=== PATIENT | male | born 1970 | race African-American/Black ===

== ENCOUNTER 2017-08-31 23:42 | Inpatient (IN) | payer BC ==
[2017-09-01 00:50] LABS: ADD MAN DIFF? NO
[2017-09-01 00:51] LABS: BASO % 0 % (0-3); EOS # 0.2 x10^3/uL (0.0-0.7); EOS % 2 % (0-3); HEMATOCRIT 30.4 % (39.0-53.0); HEMOGLOBIN 10.4 g/dL (13.0-17.5); LYMPH # 2.6 x10^3/uL (1.0-4.8); LYMPH % 35 % (24-48); MEAN CORPUSCULAR HEMOGLOBIN 30 pg (25-35); MEAN CORPUSCULAR HGB CONC 34 g/dL (31-37); MEAN CORPUSCULAR VOLUME 87 fL (79-100); MONO # 0.6 x10^3/uL (0.0-1.1); MONO % 8 % (0-9); NEUT # 4.1 x10^3uL (1.8-7.7); NEUT % 55 % (31-73); PLATELET COUNT 268 x10^3/uL (140-400); RED BLOOD COUNT 3.51 x10^6/uL (4.30-5.70); RED CELL DISTRIBUTION WIDTH 14.8 % (11.5-14.5); WHITE BLOOD COUNT 7.6 x10^3/uL (4.0-11.0)
[2017-09-01 01:00] LABS: INR 1.1 (0.8-1.1); PROTHROMBIN TIME PATIENT 13.7 SEC (11.7-14.0)
[2017-09-01] MEDS: IV NORMAL SALINE 1000ML BAG 1,000 ML IV ×2 (01:00)
[2017-09-01 01:05] LABS: ANION GAP 17 (6-14); BLOOD UREA NITROGEN 81 mg/dL (8-26); BUN/CREATININE RATIO 10 (6-20); CALCIUM 8.2 mg/dL (8.5-10.1); CARBON DIOXIDE 24 mmol/L (21-32); CHLORIDE 105 mmol/L (98-107); CREATININE 8.4 mg/dL (0.7-1.3); GFR 8.3; GLUCOSE 145 mg/dL (70-99); POTASSIUM 3.9 mmol/L (3.5-5.1); SODIUM 146 mmol/L (136-145)
[2017-09-01 01:05] LABS: LIPASE 139 U/L (73-393)
[2017-09-01 01:13] LABS: ALBUMIN 3.2 g/dL (3.4-5.0); ALK PHOS 85 U/L (46-116); ALT (SGPT) 43 U/L (16-63); AST (SGOT) 45 U/L (15-37); TOTAL BILIRUBIN 0.3 mg/dL (0.2-1.0); TOTAL PROTEIN 6.5 g/dL (6.4-8.2)
[2017-09-01 01:14] LABS: LACTIC ACID 1.9 mmol/L (0.4-2.0)
[2017-09-01 01:15] LABS: TROPONINI 0.077 ng/mL (0.000-0.055)
[2017-09-01 01:17] LABS: NT-PRO BNP 20476 pg/mL (0-124)
[2017-09-01 01:25] LABS: MAGNESIUM 2.3 mg/dL (1.8-2.4)
[2017-09-01] MEDS: IPRATRPIUM/ALBUTEROL 0.5/2.5MG 3 ML NEBU. NEB (01:27)
[2017-09-01] MEDS: DOXYCYCLINE HYCLATE 100 MG in IV NORMAL SALINE 100ML 100 ML IV (02:00)
[2017-09-01 02:04] LABS: BASE EXCESS ABG -7 mmol/L (-3-3); HCO3 ABG 19 mmol/L (21-28); PCO2 ABG 38 mmHg (35-46); PH ABG 7.31 (7.35-7.45); PO2 ABG 78 mmHg (75-108); SAT O2 ABG 94 % (92-99)
[2017-09-01 02:14] LABS: FIO2 ABG 21
[2017-09-01 02:45] LABS: BILIRUBIN,URINE NEGATIVE (NEG); CLARITY,URINE CLOUDY; COLOR,URINE YELLOW; GLUCOSE,URINE NEGATIVE (NEG); NITRITE,URINE NEGATIVE (NEG); PROTEIN,URINE >=300 mg/dL (NEG-TRACE); UROBILINOGEN,URINE 0.2 mg/dL (0.2 mg/dL)
[2017-09-01 02:48] LABS: AMORPHOUS SEDIMENT,UR PRESENT /HPF; BACTERIA,URINE 0 /HPF (0-FEW); RBC,URINE 0 /HPF (0-2); SQUAMOUS EPITHELIAL CELL,UR FEW /LPF
[2017-09-01] MEDS: IOHEXOL 300 MG/ML 100ML VIAL. IV ×2 (02:56→04:15)
[2017-09-01] MEDS ORDERED: CONTRAST GIVEN. MC (03:00)
[2017-09-01 04:16] LABS: PROCALCITONIN 0.27 ng/mL (0.00-0.10)
[2017-09-01] MEDS ORDERED: SURGICEL NU-KNIT 3X4. (04:28)
[2017-09-01] MEDS ORDERED: GELATIN SPONGE SIZE 100. (04:28)
[2017-09-01] MEDS ORDERED: PAPAVERINE 60 MG/2 ML VIAL FOR OR ONLY. (04:28)
[2017-09-01] MEDS ORDERED: SURGICEL HEMOSTAT 4X8 EACH. (04:28)
[2017-09-01] MEDS ORDERED: THROMBIN TOPICAL 20,000 UNIT SPRAY.SYRN KIT TP (04:29)
[2017-09-01] MEDS ORDERED: ROCURONIUM 100 MG/10 ML VIAL. (05:35)
[2017-09-01] MEDS ORDERED: SUCCINYLCHOLINE 200 MG/10 ML VIAL. (05:35)
[2017-09-01] MEDS ORDERED: LIDOCAINE 2% PF Vial for OR 5 ML VIAL. ×2 (05:38→14:13)
[2017-09-01] MEDS ORDERED: ETOMIDATE 20 MG/10 ML VIAL. IV (05:38)
[2017-09-01] MEDS ORDERED: HEPARIN for IV BOLUS 10,000 UNIT/10 ML VIAL. (05:38)
[2017-09-01] MEDS ORDERED: PHENYLEPHRINE 10 MG/ML VIAL. ×3 (05:39→14:55)
[2017-09-01] MEDS ORDERED: HEPARIN 30,000 UNIT/30 ML VIAL. ×4 (05:39→14:55)
[2017-09-01] MEDS ORDERED: SUFentanil 100 MCG/2 ML AMPUL. ×2 (06:14→08:20)
[2017-09-01] MEDS ORDERED: NITROGLYCERIN PREMIX 250 ML IV (06:29)
[2017-09-01] MEDS ORDERED: MIDAZOLAM HCL/PF 5 MG/5 ML VIAL. ×2 (06:40→09:24)
[2017-09-01] MEDS: MANNITOL 20% PREMIX 500 ML IV (07:00)
[2017-09-01] MEDS ORDERED: SODIUM BICARB ADULT 8.4% 50 MEQ/50 ML DISP.SYRIN. ×7 (07:22→14:13)
[2017-09-01] MEDS: INSULIN REGULAR VIAL 150 UNIT in 0.9 % SODIUM CHLORIDE 150ML 150 ML IV (07:30)
[2017-09-01] MEDS: VANCOMYCIN 10GM VIAL for OR. (07:33)
[2017-09-01] MEDS ORDERED: DEXAMETHASONE SOD PHOS 20 MG/5 ML VIAL. (07:44)
[2017-09-01] MEDS ORDERED: DIALYSIS IV ×3 (08:30→09:15)
[2017-09-01] MEDS ORDERED: CALCIUM CHLORIDE IV ×3 (08:30→09:15)
[2017-09-01] MEDS: POTASSIUM CHLORIDE 70 MEQ, SODIUM BICARBONATE VIAL 12.5 MEQ, LIDOCAINE 2% 24 ML in IV E... IRR (09:07)
[2017-09-01] MEDS: POTASSIUM CHLORIDE 15 MEQ, SODIUM BICARBONATE VIAL 12.5 MEQ in IV ELECTROLYTE-S (PH 7.4... IRR (09:07)
[2017-09-01] MEDS ORDERED: PROPOFOL 20 ML IV ×2 (09:11→11:03)
[2017-09-01] MEDS ORDERED: ceFAZolin 1GM IVPB FOR OMNI 100 ML IV (09:40)
[2017-09-01 11:21] LABS: ANION GAP 16 (6-14); BLOOD UREA NITROGEN 72 mg/dL (8-26); CALCIUM 6.9 mg/dL (8.5-10.1); CARBON DIOXIDE 20 mmol/L (21-32); CHLORIDE 106 mmol/L (98-107); CREATININE 6.9 mg/dL (0.7-1.3); GFR 10.4; GLUCOSE 138 mg/dL (70-99); SODIUM 142 mmol/L (136-145)
[2017-09-01] MEDS ORDERED: ALBUMIN HUMAN 25% 200 ML IV ×2 (11:24→14:13)
[2017-09-01 11:26] LABS: POTASSIUM 5.9 mmol/L (3.5-5.1)
[2017-09-01] MEDS ORDERED: ROCURONIUM 50 MG/5 ML VIAL. ×2 (12:02→13:19)
[2017-09-01] MEDS ORDERED: MIDAZOLAM HCL/PF 2 MG/2 ML VIAL. (12:03)
[2017-09-01 12:40] LABS: IMMEDIATE SPIN CROSSMATCH 1
[2017-09-01] MEDS ORDERED: DEXTROSE 50% 25 GM / 50ML DISP.SYRIN. IV ×2 (12:44→14:00)
[2017-09-01] MEDS ORDERED: PROTAMINE 250 MG/25 ML VIAL IV (13:35)
[2017-09-01] MEDS ORDERED: ISOFLURANE > 120 MINUTES. IH (13:35)
[2017-09-01 13:51] LABS: IMMEDIATE SPIN CROSSMATCH 1
[2017-09-01 13:56] LABS: IMMEDIATE SPIN CROSSMATCH 1 6
[2017-09-01] MEDS ORDERED: INSULIN REGULAR VIAL 150 UNIT in 0.9 % SODIUM CHLORIDE 150ML 150 ML IV (14:00)
[2017-09-01] MEDS ORDERED: BISACODYL 10 MG SUPP.RECT. PR (14:00)
[2017-09-01] MEDS ORDERED: ACETAMINOPHEN 325 MG TABLET. PO (14:00)
[2017-09-01] MEDS ORDERED: ACETAMINOPHEN 650 MG SUPP.RECT. PR (14:00)
[2017-09-01] MEDS ORDERED: 0.9 % SODIUM CHLORIDE 10 ML DISP.SYRIN. IV (14:00)
[2017-09-01] MEDS ORDERED: ASPIRIN 300 MG SUPP.RECT PR (14:00)
[2017-09-01] MEDS ORDERED: MEPERIDINE PF 25 MG/ML VIAL. IV (14:00)
[2017-09-01] MEDS ORDERED: MAGNESIUM SULFATE 1GM 100 ML IV (14:00)
[2017-09-01] MEDS ORDERED: MAGNESIUM SULFATE 5 GM/10 ML VIAL. (14:13)
[2017-09-01] MEDS ORDERED: CALCIUM CHLORIDE 1,000 MG/10 ML DISP.SYRIN IV (14:13)
[2017-09-01 15:01] LABS: ADD MAN DIFF? NO
[2017-09-01 15:04] LABS: BASO % 0 % (0-3); EOS % 0 % (0-3); HEMATOCRIT 23.3 % (39.0-53.0); HEMOGLOBIN 8.1 g/dL (13.0-17.5); LYMPH # 1.3 x10^3/uL (1.0-4.8); LYMPH % 14 % (24-48); MEAN CORPUSCULAR HEMOGLOBIN 31 pg (25-35); MEAN CORPUSCULAR HGB CONC 35 g/dL (31-37); MEAN CORPUSCULAR VOLUME 88 fL (79-100); MONO # 0.9 x10^3/uL (0.0-1.1); MONO % 10 % (0-9); NEUT # 7.2 x10^3uL (1.8-7.7); NEUT % 76 % (31-73); PLATELET COUNT 121 x10^3/uL (140-400); RED BLOOD COUNT 2.66 x10^6/uL (4.30-5.70); RED CELL DISTRIBUTION WIDTH 15.4 % (11.5-14.5); WHITE BLOOD COUNT 9.5 x10^3/uL (4.0-11.0)
[2017-09-01 15:11] LABS: FIBRINOGEN 228 mg/dL (200-440); INR 1.8 (0.8-1.1); PARTIAL THROMBOPLASTIN TIME 43 SEC (24-38); PROTHROMBIN TIME PATIENT 20.5 SEC (11.7-14.0)
[2017-09-01] MEDS: AMIODARONE 150 MG in IV DEXTROSE 5% 100ML 100 ML IV (15:30)
[2017-09-01 15:45] LABS: ART BE ISTAT -10 mmol/L (0-3); ART BE ISTAT -2 mmol/L (0-3); ART BE ISTAT -3 mmol/L (0-3); ART BE ISTAT -4 mmol/L (0-3); ART BE ISTAT -6 mmol/L (0-3); ART BE ISTAT 1 mmol/L (0-3); ART BE ISTAT 3 mmol/L (0-3); ART BE ISTAT 7 mmol/L (0-3); ART GLUC ISTAT 120 mg/dL (70-99); ART GLUC ISTAT 128 mg/dL (70-99); ART GLUC ISTAT 132 mg/dL (70-99); ART GLUC ISTAT 135 mg/dL (70-99); ART GLUC ISTAT 136 mg/dL (70-99); ART GLUC ISTAT 140 mg/dL (70-99); ART GLUC ISTAT 142 mg/dL (70-99); ART GLUC ISTAT 143 mg/dL (70-99); ART GLUC ISTAT 152 mg/dL (70-99); ART GLUC ISTAT 178 mg/dL (70-99); ART HCO3 ISTAT 18 mmol/L (21-28); ART HCO3 ISTAT 21 mmol/L (21-28); ART HCO3 ISTAT 23 mmol/L (21-28); ART HCO3 ISTAT 24 mmol/L (21-28); ART HCO3 ISTAT 25 mmol/L (21-28); ART HCO3 ISTAT 26 mmol/L (21-28); ART HCT ISTAT 20 % (37-52); ART HCT ISTAT 21 % (37-52); ART HCT ISTAT 22 % (37-52); ART HCT ISTAT 24 % (37-52); ART HCT ISTAT 25 % (37-52); ART HCT ISTAT 26 % (37-52); ART HCT ISTAT 27 % (37-52); ART HCT ISTAT 30 % (37-52); ART HGB ISTAT 10.2 g/dL (14-18); ART HGB ISTAT 6.8 g/dL (14-18); ART HGB ISTAT 7.1 g/dL (14-18); ART HGB ISTAT 7.5 g/dL (14-18); ART HGB ISTAT 8.2 g/dL (14-18); ART HGB ISTAT 8.5 g/dL (14-18); ART HGB ISTAT 8.8 g/dL (14-18); ART HGB ISTAT 9.2 g/dL (14-18); ART ION CA ISTAT 0.83 mmol/L (1.13-1.32); ART ION CA ISTAT 0.88 mmol/L (1.13-1.32); ART ION CA ISTAT 0.93 mmol/L (1.13-1.32); ART ION CA ISTAT 0.94 mmol/L (1.13-1.32); ART ION CA ISTAT 0.96 mmol/L (1.13-1.32); ART ION CA ISTAT 1.07 mmol/L (1.13-1.32); ART ION CA ISTAT 1.14 mmol/L (1.13-1.32); ART K ISTAT 4.1 mmol/L (3.5-5.0); ART K ISTAT 4.2 mmol/L (3.5-5.0); ART K ISTAT 5.2 mmol/L (3.5-5.0); ART K ISTAT 5.5 mmol/L (3.5-5.0); ART K ISTAT 5.8 mmol/L (3.5-5.0); ART K ISTAT 5.9 mmol/L (3.5-5.0); ART K ISTAT 6.1 mmol/L (3.5-5.0); ART K ISTAT 6.2 mmol/L (3.5-5.0); ART NA ISTAT 138 mmol/L (135-145); ART NA ISTAT 139 mmol/L (135-145); ART NA ISTAT 140 mmol/L (135-145); ART NA ISTAT 141 mmol/L (135-145); ART NA ISTAT 144 mmol/L (135-145); ART PCO2 ISTAT 15 mmHg (35-45); ART PCO2 ISTAT 36 mmHg (35-45); ART PCO2 ISTAT 39 mmHg (35-45); ART PCO2 ISTAT 42 mmHg (35-45); ART PCO2 ISTAT 44 mmHg (35-45); ART PCO2 ISTAT 49 mmHg (35-45); ART PCO2 ISTAT 50 mmHg (35-45); ART PCO2 ISTAT 54 mmHg (35-45); ART PH ISTAT 7.18 (7.35-7.45); ART PH ISTAT 7.24 (7.35-7.45); ART PH ISTAT 7.25 (7.35-7.45); ART PH ISTAT 7.31 (7.35-7.45); ART PH ISTAT 7.33 (7.35-7.45); ART PH ISTAT 7.34 (7.35-7.45); ART PH ISTAT 7.37 (7.35-7.45); ART PH ISTAT 7.42 (7.35-7.45); ART PH ISTAT 7.47 (7.35-7.45); ART PH ISTAT 7.83 (7.35-7.45); ART PO2 ISTAT 149 mmHg (75-100); ART PO2 ISTAT 215 mmHg (75-100); ART PO2 ISTAT 234 mmHg (75-100); ART PO2 ISTAT 274 mmHg (75-100); ART PO2 ISTAT 347 mmHg (75-100); ART PO2 ISTAT 380 mmHg (75-100); ART PO2 ISTAT 387 mmHg (75-100); ART PO2 ISTAT 403 mmHg (75-100); ART PO2 ISTAT 468 mmHg (75-100); ART PO2 ISTAT 85 mmHg (75-100); ART SAT O2 SAT 100 % (95-99); ART SAT O2 SAT 96 % (95-99); ART SAT O2 SAT 99 % (95-99); ART TCO2 ISTAT 20 mmol/L (21-32); ART TCO2 ISTAT 23 mmol/L (21-32); ART TCO2 ISTAT 24 mmol/L (21-32); ART TCO2 ISTAT 25 mmol/L (21-32); ART TCO2 ISTAT 26 mmol/L (21-32); ART TCO2 ISTAT 27 mmol/L (21-32); FIO2 ISTAT 100; TOSPEC ART; TOSPEC VEN; VEN BASE EXCESS ISTAT -8 mmol/L (0-3); VEN GLUC ISTAT 134 mg/dL (70-99); VEN HCO3 ISTAT 20 mmol/L (24-28); VEN HCT ISTAT 24 % (37-52); VEN HGB ISTAT 8.2 g/dL (14-18); VEN ION CA ISTAT 0.98 mmol/L (1.13-1.32); VEN K ISTAT 6.5 mmol/L (3.5-5.0); VEN NA ISTAT 138 mmol/L (135-145); VEN O2 ISTAT 63 mmHg (20-40); VEN PCO2 ISTAT 60 mmHg (41-51); VEN PH ISTAT 7.14 (7.32-7.42); VEN SO2 ISTAT 84 %; VEN TCO2 ISTAT 22 mmol/L (21-32)
[2017-09-01 16:23] LABS: BASE EXCESS ABG -4 mmol/L (-3-3); HCO3 ABG 22 mmol/L (21-28); PCO2 ABG 43 mmHg (35-46); PH ABG 7.33 (7.35-7.45); PO2 ABG 62 mmHg (75-108); SAT O2 ABG 89 % (92-99)
[2017-09-01 16:26] LABS: FIO2 ABG 100
[2017-09-01 16:32] LABS: ADD MAN DIFF? NO
[2017-09-01 16:36] LABS: BASO % 0 % (0-3); EOS % 0 % (0-3); HEMATOCRIT 25.8 % (39.0-53.0); HEMOGLOBIN 8.9 g/dL (13.0-17.5); LYMPH # 1.2 x10^3/uL (1.0-4.8); LYMPH % 13 % (24-48); MEAN CORPUSCULAR HEMOGLOBIN 30 pg (25-35); MEAN CORPUSCULAR HGB CONC 35 g/dL (31-37); MEAN CORPUSCULAR VOLUME 88 fL (79-100); MONO # 1.1 x10^3/uL (0.0-1.1); MONO % 13 % (0-9); NEUT # 6.7 x10^3uL (1.8-7.7); NEUT % 74 % (31-73); PLATELET COUNT 128 x10^3/uL (140-400); RED BLOOD COUNT 2.93 x10^6/uL (4.30-5.70); RED CELL DISTRIBUTION WIDTH 15.3 % (11.5-14.5)
[2017-09-01 16:43] LABS: ANION GAP 11 (6-14); BLOOD UREA NITROGEN 67 mg/dL (8-26); CALCIUM 6.5 mg/dL (8.5-10.1); CARBON DIOXIDE 23 mmol/L (21-32); CHLORIDE 110 mmol/L (98-107); CREATININE 6.9 mg/dL (0.7-1.3); GFR 10.4; GLUCOSE 126 mg/dL (70-99); MAGNESIUM 2.4 mg/dL (1.8-2.4); SODIUM 144 mmol/L (136-145)
[2017-09-01 16:45] LABS: FIBRINOGEN 253 mg/dL (200-440); POTASSIUM 4.4 mmol/L (3.5-5.1)
[2017-09-01 16:46] LABS: INR 1.6 (0.8-1.1); PARTIAL THROMBOPLASTIN TIME 38 SEC (24-38); PROTHROMBIN TIME PATIENT 18.7 SEC (11.7-14.0)
[2017-09-01 16:55] LABS: IONIZED CALCIUM 0.94 mmol/L (1.13-1.32)
[2017-09-01] MEDS ORDERED: ceFAZolin SODIUM IV Push 1 GM VIAL. IVP (17:00)
[2017-09-01 17:27] LABS: BASE EXCESS ABG -4 mmol/L (-3-3); BODY TEMP ABG 96.2 DEG; CORRECTED PCO2 ABG 33 mmHg; CORRECTED PH ABG 7.41; CORRECTED PO2 ABG 62 mmHg; HCO3 ABG 21 mmol/L (21-28); PCO2 ABG 35 mmHg (35-46); PH ABG 7.39 (7.35-7.45); PO2 ABG 68 mmHg (75-108); SAT O2 ABG 91 % (92-99)
[2017-09-01 17:30] LABS: FIO2 ABG 100
[2017-09-01 17:59] LABS: ACT+ 561 SEC (90-125)
[2017-09-01 17:59] LABS: ACT+ 129 SEC (90-125)
[2017-09-01 17:59] LABS: ACT+ 542 SEC (90-125)
[2017-09-01 18:00] LABS: ACT+ 645 SEC (90-125)
[2017-09-01 18:00] LABS: ACT+ 514 SEC (90-125)
[2017-09-01 18:00] LABS: ACT+ 624 SEC (90-125)
[2017-09-01 18:00] LABS: ACT+ 684 SEC (90-125)
[2017-09-01 18:00] LABS: ACT+ 546 SEC (90-125)
[2017-09-01 18:00] LABS: ACT+ 677 SEC (90-125)
[2017-09-01 18:00] LABS: ACT+ 639 SEC (90-125)
[2017-09-01 18:00] LABS: ACT+ 746 SEC (90-125)
[2017-09-01 18:01] LABS: ACT+ 117 SEC (90-125)
[2017-09-01] MEDS: ALBUMIN HUMAN 5% 250 ML IV ×2 (18:20→19:51)
[2017-09-01] MEDS: PROPOFOL 100 ML IV ×2 (18:21→20:06)
[2017-09-01] MEDS: AMIODARONE 900 MG in IV DEXTROSE 5% 500 ML IV (18:22)
[2017-09-01] MEDS: CHLORHEXIDINE 0.12% 15 ML MOUTHWASH. MM (20:06)
[2017-09-01] MEDS: ALBUTEROL SULFATE 2.5 MG/3 ML NEBU. NEB (20:11)
[2017-09-01 20:43] LABS: HEMATOCRIT 24.9 % (39.0-53.0); HEMOGLOBIN 8.7 g/dL (13.0-17.5); MEAN CORPUSCULAR HGB CONC 35 g/dL (31-37)
[2017-09-01] MEDS: IV RINGERS,LACTATED 1000ML 1,000 ML IV (20:45)
[2017-09-01] MEDS ORDERED: FAMOTIDINE 20 MG/2 ML VIAL IVP (21:00)
[2017-09-01] MEDS: MORPHINE SULFATE 4 MG/ML DISP.SYRIN. IV ×2 (21:45→23:10)
[2017-09-01 22:52] LABS: BASE EXCESS ABG -4 mmol/L (-3-3); BODY TEMP ABG 99.9 DEG; CORRECTED PCO2 ABG 33 mmHg; CORRECTED PO2 ABG 83 mmHg; HCO3 ABG 20 mmol/L (21-28); PCO2 ABG 32 mmHg (35-46); PH ABG 7.41 (7.35-7.45); PO2 ABG 79 mmHg (75-108); SAT O2 ABG 95 % (92-99)
[2017-09-01 23:33] LABS: FIO2 ABG 40
[2017-09-01] MEDS: SODIUM BICARB ADULT 8.4% 50 MEQ/50 ML DISP.SYRIN. IV (23:54)
[2017-09-02] MEDS: oxyCODONE/APAP 5/325 1 TAB TABLET PO ×5 (00:18→21:21)
[2017-09-02 00:32] LABS: POC GLUCOSE 122 mg/dL (70-99)
[2017-09-02 00:32] LABS: POC GLUCOSE 141 mg/dL (70-99)
[2017-09-02 00:32] LABS: POC GLUCOSE 111 mg/dL (70-99)
[2017-09-02 00:32] LABS: POC GLUCOSE 112 mg/dL (70-99)
[2017-09-02 00:32] LABS: POC GLUCOSE 138 mg/dL (70-99)
[2017-09-02 00:33] LABS: POC GLUCOSE 122 mg/dL (70-99)
[2017-09-02 00:33] LABS: POC GLUCOSE 120 mg/dL (70-99)
[2017-09-02 00:33] LABS: POC GLUCOSE 124 mg/dL (70-99)
[2017-09-02] MEDS: MORPHINE SULFATE 4 MG/ML DISP.SYRIN. IV ×3 (00:36→06:43)
[2017-09-02 01:37] LABS: POC GLUCOSE 127 mg/dL (70-99)
[2017-09-02] MEDS: ceFAZolin SODIUM IV Push 1 GM VIAL. IVP ×2 (02:09→15:57)
[2017-09-02 02:20] LABS: POC GLUCOSE 130 mg/dL (70-99)
[2017-09-02 02:32] LABS: POTASSIUM 4.8 mmol/L (3.5-5.1)
[2017-09-02 03:28] LABS: POC GLUCOSE 126 mg/dL (70-99)
[2017-09-02] MEDS: ALBUTEROL SULFATE 2.5 MG/3 ML NEBU. NEB ×6 (04:00→21:10)
[2017-09-02 04:26] LABS: POC GLUCOSE 127 mg/dL (70-99)
[2017-09-02 05:58] LABS: POC GLUCOSE 121 mg/dL (70-99)
[2017-09-02 06:33] LABS: MAGNESIUM 2.3 mg/dL (1.8-2.4)
[2017-09-02 06:38] LABS: ANION GAP 13 (6-14); BLOOD UREA NITROGEN 72 mg/dL (8-26); CALCIUM 7.1 mg/dL (8.5-10.1); CARBON DIOXIDE 22 mmol/L (21-32); CHLORIDE 108 mmol/L (98-107); CHOLESTEROL 92 mg/dL (0-200); CHOLESTEROL/HDL RATIO 3.3; GFR 8.8; GLUCOSE 132 mg/dL (70-99); HDLC 28 mg/dL (40-60); LDLC 53 mg/dL (0-100); NON-HDL CHOLESTEROL 64 mg/dL (0-129); POTASSIUM 4.8 mmol/L (3.5-5.1); SODIUM 143 mmol/L (136-145); TRIGLYCERIDES 55 mg/dL (0-150); VLDLC 11 mg/dL (0-40)
[2017-09-02 07:18] LABS: HEMATOCRIT 26.9 % (39.0-53.0); MEAN CORPUSCULAR HEMOGLOBIN 29 pg (25-35); MEAN CORPUSCULAR HGB CONC 33 g/dL (31-37); MEAN CORPUSCULAR VOLUME 88 fL (79-100); PLATELET COUNT 125 x10^3/uL (140-400); RED BLOOD COUNT 3.05 x10^6/uL (4.30-5.70); RED CELL DISTRIBUTION WIDTH 15.7 % (11.5-14.5); WHITE BLOOD COUNT 11.8 x10^3/uL (4.0-11.0)
[2017-09-02] MEDS: TRANEXAMIC ACID 1,000 MG in IV NORMAL SALINE 50ML 50 ML INJ ×2 (07:30→08:00)
[2017-09-02] MEDS: CHLORHEXIDINE 0.12% 15 ML MOUTHWASH. MM (09:00)
[2017-09-02] MEDS ORDERED: LIDOCAINE WITH 8.4% SOD BICARB 3 ML DISP.SYRIN. (10:04)
[2017-09-02] MEDS ORDERED: HEPARIN for IV BOLUS 10,000 UNIT/10 ML VIAL. (10:04)
[2017-09-02] MEDS: PANTOPRAZOLE IV PUSH 40 MG VIAL. IVP (10:12)
[2017-09-02] MEDS: CARVEDILOL 6.25 MG TABLET. PO ×2 (10:12→16:04)
[2017-09-02] MEDS: ASPIRIN ENTERIC COATED 325 MG TABLET.DR. PO (10:12)
[2017-09-02 10:16] LABS: POC GLUCOSE 126 mg/dL (70-99)
[2017-09-02] MEDS: LIDOCAINE WITH 8.4% SOD BICARB 3 ML DISP.SYRIN. INJ (10:55)
[2017-09-02] MEDS ORDERED: IV NORMAL SALINE 1000ML BAG 1,000 ML IV ×2 (12:58)
[2017-09-02] MEDS ORDERED: diphenhydrAMINE 50 MG/ML VIAL IV ×2 (13:00)
[2017-09-02] MEDS ORDERED: DIALYSIS PATIENT. MC ×3 (13:00)
[2017-09-02] MEDS ORDERED: 0.9 % SODIUM CHLORIDE 10 ML DISP.SYRIN. IV ×2 (13:00)
[2017-09-02] MEDS ORDERED: ALBUMIN HUMAN 25% 200 ML IV (13:00)
[2017-09-02] MEDS ORDERED: DEXTROSE 50% 25 GM / 50ML DISP.SYRIN. IV (15:30)
[2017-09-02] MEDS: PROCHLORPERAZINE 10 MG/2 ML VIAL. IV (15:57)
[2017-09-02] MEDS: ONDANSETRON PF 4 MG/2 ML VIAL. IV (15:57)
[2017-09-02] MEDS: NICOTINE 21MG PATCH. TD (16:04)
[2017-09-02] MEDS: AMIODARONE HCL 200 MG TABLET. PO ×2 (16:04→21:19)
[2017-09-02] MEDS: POLYETHYLENE GLYCOL 3350 17 GM PACKET. PO (16:05)
[2017-09-02] MEDS: INSULIN LISPRO 300 UNITS/3 ML INSULN.PEN. SQ (17:00)
[2017-09-02 17:51] LABS: POC GLUCOSE 97 mg/dL (70-99)
[2017-09-02 19:17] LABS: MRSA BY PCR Negative (Negative)
[2017-09-02] MEDS: ATORVASTATIN CALCIUM 40 MG TABLET. PO (21:10)
[2017-09-02] MEDS: SENNOSIDES/DOCUSATE 8.6/50MG TABLET. PO (21:18)
[2017-09-02 21:27] LABS: POC GLUCOSE 102 mg/dL (70-99)
[2017-09-02] MEDS: IV RINGERS,LACTATED 1000ML 1,000 ML IV (23:57)
[2017-09-03] MEDS: ALBUTEROL SULFATE 2.5 MG/3 ML NEBU. NEB ×7 (00:46→23:42)
[2017-09-03] MEDS: ceFAZolin SODIUM IV Push 1 GM VIAL. IVP ×2 (02:30→14:00)
[2017-09-03] MEDS: oxyCODONE/APAP 5/325 1 TAB TABLET PO ×3 (04:18→21:07)
[2017-09-03 06:27] LABS: ANION GAP 7 (6-14); BLOOD UREA NITROGEN 59 mg/dL (8-26); CALCIUM 8.1 mg/dL (8.5-10.1); CARBON DIOXIDE 28 mmol/L (21-32); CHLORIDE 101 mmol/L (98-107); CREATININE 7.5 mg/dL (0.7-1.3); GFR 9.4; GLUCOSE 98 mg/dL (70-99); POTASSIUM 5.4 mmol/L (3.5-5.1); SODIUM 136 mmol/L (136-145)
[2017-09-03] MEDS: INSULIN LISPRO 300 UNITS/3 ML INSULN.PEN. SQ ×3 (08:00→17:00)
[2017-09-03] MEDS: CARVEDILOL 6.25 MG TABLET. PO ×2 (08:00→17:17)
[2017-09-03] MEDS: POLYETHYLENE GLYCOL 3350 17 GM PACKET. PO ×2 (08:00→17:00)
[2017-09-03 08:19] LABS: POC GLUCOSE 87 mg/dL (70-99)
[2017-09-03] MEDS: AMIODARONE HCL 200 MG TABLET. PO ×2 (09:00→21:09)
[2017-09-03] MEDS: PANTOPRAZOLE 40 MG TABLET.DR. PO (09:01)
[2017-09-03] MEDS: ASPIRIN ENTERIC COATED 325 MG TABLET.DR. PO (09:01)
[2017-09-03] MEDS: ONDANSETRON PF 4 MG/2 ML VIAL. IV (09:01)
[2017-09-03] MEDS: NICOTINE 21MG PATCH. TD (09:05)
[2017-09-03] MEDS ORDERED: DIALYSIS PATIENT. MC (09:15)
[2017-09-03] MEDS ORDERED: diphenhydrAMINE 50 MG/ML VIAL IV ×2 (09:15)
[2017-09-03] MEDS ORDERED: ALBUMIN HUMAN 25% 200 ML IV (09:15)
[2017-09-03] MEDS ORDERED: IV NORMAL SALINE 1000ML BAG 1,000 ML IV ×2 (09:15)
[2017-09-03 13:36] LABS: POC GLUCOSE 84 mg/dL (70-99)
[2017-09-03] MEDS: SENNOSIDES/DOCUSATE 8.6/50MG TABLET. PO ×2 (17:12→21:00)
[2017-09-03 17:27] LABS: POC GLUCOSE 82 mg/dL (70-99)
[2017-09-03] MEDS: ATORVASTATIN CALCIUM 40 MG TABLET. PO (21:09)
[2017-09-03 21:12] LABS: HEMOGLOBIN A1C 5.2 % (4.8-5.6)
[2017-09-03 21:25] LABS: POC GLUCOSE 71 mg/dL (70-99)
[2017-09-04 02:09] LABS: HEP B SURFACE ABDY Non Reactive (.); HEP B SURFACE AG Negative (Negative)
[2017-09-04] MEDS: ceFAZolin SODIUM IV Push 1 GM VIAL. IVP (02:15)
[2017-09-04] MEDS: ALBUTEROL SULFATE 2.5 MG/3 ML NEBU. NEB ×7 (04:00→23:54)
[2017-09-04] MEDS: oxyCODONE/APAP 5/325 1 TAB TABLET PO ×4 (04:53→23:23)
[2017-09-04] MEDS: ONDANSETRON PF 4 MG/2 ML VIAL. IV (06:31)
[2017-09-04] MEDS: INSULIN LISPRO 300 UNITS/3 ML INSULN.PEN. SQ (08:00)
[2017-09-04] MEDS: CARVEDILOL 6.25 MG TABLET. PO ×2 (08:00→16:46)
[2017-09-04 08:29] LABS: HEMATOCRIT 24.7 % (39.0-53.0); HEMOGLOBIN 8.4 g/dL (13.0-17.5); MEAN CORPUSCULAR HEMOGLOBIN 30 pg (25-35); MEAN CORPUSCULAR HGB CONC 34 g/dL (31-37); MEAN CORPUSCULAR VOLUME 89 fL (79-100); PLATELET COUNT 121 x10^3/uL (140-400); RED BLOOD COUNT 2.78 x10^6/uL (4.30-5.70); RED CELL DISTRIBUTION WIDTH 15.3 % (11.5-14.5); WHITE BLOOD COUNT 8.6 x10^3/uL (4.0-11.0)
[2017-09-04 08:59] LABS: ANION GAP 10 (6-14); BLOOD UREA NITROGEN 52 mg/dL (8-26); CALCIUM 8.4 mg/dL (8.5-10.1); CARBON DIOXIDE 27 mmol/L (21-32); CHLORIDE 99 mmol/L (98-107); CREATININE 6.9 mg/dL (0.7-1.3); GFR 10.4; GLUCOSE 110 mg/dL (70-99); POTASSIUM 4.5 mmol/L (3.5-5.1); SODIUM 136 mmol/L (136-145)
[2017-09-04] MEDS: SENNOSIDES/DOCUSATE 8.6/50MG TABLET. PO ×2 (09:31→23:22)
[2017-09-04] MEDS: POLYETHYLENE GLYCOL 3350 17 GM PACKET. PO ×2 (09:31→16:41)
[2017-09-04] MEDS: ASPIRIN ENTERIC COATED 325 MG TABLET.DR. PO (09:31)
[2017-09-04] MEDS: PANTOPRAZOLE 40 MG TABLET.DR. PO (09:31)
[2017-09-04] MEDS: AMIODARONE HCL 200 MG TABLET. PO ×2 (09:32→23:22)
[2017-09-04] MEDS: NICOTINE 21MG PATCH. TD (09:32)
[2017-09-04] MEDS: ATORVASTATIN CALCIUM 40 MG TABLET. PO (23:22)
[2017-09-05] MEDS: oxyCODONE/APAP 5/325 1 TAB TABLET PO ×5 (04:03→23:47)
[2017-09-05] MEDS: ALBUTEROL SULFATE 2.5 MG/3 ML NEBU. NEB ×5 (04:55→19:49)
[2017-09-05 07:13] LABS: HEMATOCRIT 24.4 % (39.0-53.0); HEMOGLOBIN 8.4 g/dL (13.0-17.5); MEAN CORPUSCULAR HEMOGLOBIN 31 pg (25-35); MEAN CORPUSCULAR HGB CONC 35 g/dL (31-37); MEAN CORPUSCULAR VOLUME 89 fL (79-100); PLATELET COUNT 146 x10^3/uL (140-400); RED BLOOD COUNT 2.73 x10^6/uL (4.30-5.70); RED CELL DISTRIBUTION WIDTH 15.4 % (11.5-14.5); WHITE BLOOD COUNT 7.6 x10^3/uL (4.0-11.0)
[2017-09-05 07:49] LABS: ANION GAP 12 (6-14); BLOOD UREA NITROGEN 80 mg/dL (8-26); CALCIUM 7.8 mg/dL (8.5-10.1); CARBON DIOXIDE 28 mmol/L (21-32); CHLORIDE 97 mmol/L (98-107); CREATININE 9.5 mg/dL (0.7-1.3); GFR 7.2; GLUCOSE 100 mg/dL (70-99); POTASSIUM 4.8 mmol/L (3.5-5.1); SODIUM 137 mmol/L (136-145)
[2017-09-05] MEDS: SENNOSIDES/DOCUSATE 8.6/50MG TABLET. PO ×2 (08:35→20:05)
[2017-09-05] MEDS: AMIODARONE HCL 200 MG TABLET. PO ×2 (08:36→20:06)
[2017-09-05] MEDS: CARVEDILOL 6.25 MG TABLET. PO ×2 (08:36→17:27)
[2017-09-05] MEDS: PANTOPRAZOLE 40 MG TABLET.DR. PO (08:36)
[2017-09-05] MEDS: ASPIRIN ENTERIC COATED 325 MG TABLET.DR. PO (08:37)
[2017-09-05] MEDS: NICOTINE 21MG PATCH. TD (08:37)
[2017-09-05] MEDS: POLYETHYLENE GLYCOL 3350 17 GM PACKET. PO ×2 (08:37→17:27)
[2017-09-05] MEDS ORDERED: IV NORMAL SALINE 1000ML BAG 1,000 ML IV ×2 (10:47)
[2017-09-05] MEDS ORDERED: ALBUMIN HUMAN 25% 200 ML IV (11:00)
[2017-09-05] MEDS ORDERED: DIALYSIS PATIENT. MC (11:00)
[2017-09-05] MEDS ORDERED: diphenhydrAMINE 50 MG/ML VIAL IV ×2 (11:00)
[2017-09-05] MEDS ORDERED: 0.9 % SODIUM CHLORIDE 10 ML DISP.SYRIN. IV ×2 (11:00)
[2017-09-05] MEDS ORDERED: LOSARTAN POTASSIUM 25 MG TABLET. PO ×2 (17:00)
[2017-09-05] MEDS: ATORVASTATIN CALCIUM 40 MG TABLET. PO (20:06)
[2017-09-06] MEDS: ALBUTEROL SULFATE 2.5 MG/3 ML NEBU. NEB ×7 (00:40→23:50)
[2017-09-06] MEDS: oxyCODONE/APAP 5/325 1 TAB TABLET PO ×4 (03:35→19:56)
[2017-09-06 07:33] LABS: ANION GAP 8 (6-14); BLOOD UREA NITROGEN 67 mg/dL (8-26); CALCIUM 7.8 mg/dL (8.5-10.1); CARBON DIOXIDE 31 mmol/L (21-32); CHLORIDE 100 mmol/L (98-107); CREATININE 8.2 mg/dL (0.7-1.3); GFR 8.5; GLUCOSE 89 mg/dL (70-99); POTASSIUM 4.5 mmol/L (3.5-5.1); SODIUM 139 mmol/L (136-145)
[2017-09-06] MEDS: PANTOPRAZOLE 40 MG TABLET.DR. PO (07:44)
[2017-09-06] MEDS: NICOTINE 21MG PATCH. TD (08:47)
[2017-09-06] MEDS: CARVEDILOL 6.25 MG TABLET. PO ×2 (08:47→17:51)
[2017-09-06] MEDS: SENNOSIDES/DOCUSATE 8.6/50MG TABLET. PO ×2 (08:48→21:00)
[2017-09-06] MEDS: ASPIRIN ENTERIC COATED 325 MG TABLET.DR. PO (08:48)
[2017-09-06] MEDS: AMIODARONE HCL 200 MG TABLET. PO ×2 (08:48→21:19)
[2017-09-06] MEDS: POLYETHYLENE GLYCOL 3350 17 GM PACKET. PO ×2 (08:55→17:00)
[2017-09-06] MEDS: CYCLOBENZAPRINE 10 MG TABLET. PO (09:38)
[2017-09-06 11:57] LABS: INR 1.3 (0.8-1.1); PROTHROMBIN TIME PATIENT 15.5 SEC (11.7-14.0)
[2017-09-06] MEDS: LOSARTAN POTASSIUM 25 MG TABLET. PO (12:33)
[2017-09-06] MEDS: amLODIPine BESYLATE 5 MG TABLET PO (13:57)
[2017-09-06] MEDS: ATORVASTATIN CALCIUM 40 MG TABLET. PO (21:18)
[2017-09-07] MEDS: ALBUTEROL SULFATE 2.5 MG/3 ML NEBU. NEB ×6 (03:56→23:12)
[2017-09-07] MEDS: oxyCODONE/APAP 5/325 1 TAB TABLET PO ×4 (04:36→23:28)
[2017-09-07 04:37] LABS: ADD MAN DIFF? NO
[2017-09-07 05:17] LABS: BASO % 0 % (0-3); EOS # 0.3 x10^3/uL (0.0-0.7); EOS % 4 % (0-3); HEMATOCRIT 23.9 % (39.0-53.0); HEMOGLOBIN 8.2 g/dL (13.0-17.5); LYMPH # 1.4 x10^3/uL (1.0-4.8); LYMPH % 20 % (24-48); MEAN CORPUSCULAR HEMOGLOBIN 30 pg (25-35); MEAN CORPUSCULAR HGB CONC 34 g/dL (31-37); MEAN CORPUSCULAR VOLUME 88 fL (79-100); MONO # 1.3 x10^3/uL (0.0-1.1); MONO % 19 % (0-9); NEUT # 3.8 x10^3uL (1.8-7.7); NEUT % 56 % (31-73); PLATELET COUNT 185 x10^3/uL (140-400); RED BLOOD COUNT 2.71 x10^6/uL (4.30-5.70); RED CELL DISTRIBUTION WIDTH 15.1 % (11.5-14.5); WHITE BLOOD COUNT 6.7 x10^3/uL (4.0-11.0)
[2017-09-07] MEDS: PANTOPRAZOLE 40 MG TABLET.DR. PO (07:30)
[2017-09-07] MEDS: POLYETHYLENE GLYCOL 3350 17 GM PACKET. PO ×2 (08:00→17:00)
[2017-09-07] MEDS: ASPIRIN ENTERIC COATED 325 MG TABLET.DR. PO (08:00)
[2017-09-07] MEDS: NICOTINE 21MG PATCH. TD (09:00)
[2017-09-07] MEDS: SENNOSIDES/DOCUSATE 8.6/50MG TABLET. PO ×2 (09:00→21:04)
[2017-09-07] MEDS ORDERED: IV NORMAL SALINE 1000ML BAG 1,000 ML IV ×2 (09:20)
[2017-09-07] MEDS ORDERED: DIALYSIS PATIENT. MC ×2 (09:30)
[2017-09-07 11:49] LABS: ANION GAP 13 (6-14); BLOOD UREA NITROGEN 89 mg/dL (8-26); CALCIUM 8.1 mg/dL (8.5-10.1); CARBON DIOXIDE 27 mmol/L (21-32); CHLORIDE 100 mmol/L (98-107); CREATININE 10.4 mg/dL (0.7-1.3); GFR 6.5; GLUCOSE 93 mg/dL (70-99); POTASSIUM 4.2 mmol/L (3.5-5.1); SODIUM 140 mmol/L (136-145)
[2017-09-07] MEDS: CARVEDILOL 6.25 MG TABLET. PO ×2 (11:53→17:00)
[2017-09-07] MEDS: amLODIPine BESYLATE 10 MG TABLET PO (11:53)
[2017-09-07] MEDS: AMIODARONE HCL 200 MG TABLET. PO ×2 (11:55→21:04)
[2017-09-07] MEDS ORDERED: MIDAZOLAM HCL/PF 2 MG/2 ML VIAL. (12:41)
[2017-09-07] MEDS ORDERED: fentaNYL PF VIAL 100 MCG/2 ML VIAL (12:41)
[2017-09-07] MEDS ORDERED: LIDOCAINE 2%/EPI 1:100,000 20 ML VIAL. (12:50)
[2017-09-07] MEDS ORDERED: HEPARIN for IV BOLUS 10,000 UNIT/10 ML VIAL. (12:50)
[2017-09-07] MEDS: LOSARTAN POTASSIUM 25 MG TABLET. PO (13:00)
[2017-09-07] MEDS: LIDOCAINE 2%/EPI 1:100,000 20 ML VIAL. IJ (13:32)
[2017-09-07] MEDS: MIDAZOLAM HCL/PF 2 MG/2 ML VIAL. IV (13:33)
[2017-09-07] MEDS: fentaNYL PF VIAL 100 MCG/2 ML VIAL IV (13:33)
[2017-09-07] MEDS: HEPARIN for IV BOLUS 10,000 UNIT/10 ML VIAL. INT CAT (13:34)
[2017-09-07] MEDS: ATORVASTATIN CALCIUM 40 MG TABLET. PO (21:04)
[2017-09-08] MEDS: ALBUTEROL SULFATE 2.5 MG/3 ML NEBU. NEB ×3 (03:46→11:56)
[2017-09-08 04:47] LABS: ADD MAN DIFF? NO
[2017-09-08 04:52] LABS: BASO % 0 % (0-3); EOS # 0.3 x10^3/uL (0.0-0.7); EOS % 3 % (0-3); HEMOGLOBIN 8.6 g/dL (13.0-17.5); LYMPH # 1.7 x10^3/uL (1.0-4.8); LYMPH % 20 % (24-48); MEAN CORPUSCULAR HEMOGLOBIN 30 pg (25-35); MEAN CORPUSCULAR HGB CONC 34 g/dL (31-37); MEAN CORPUSCULAR VOLUME 88 fL (79-100); MONO # 1.4 x10^3/uL (0.0-1.1); MONO % 17 % (0-9); NEUT # 5.1 x10^3uL (1.8-7.7); NEUT % 60 % (31-73); PLATELET COUNT 208 x10^3/uL (140-400); RED BLOOD COUNT 2.84 x10^6/uL (4.30-5.70); RED CELL DISTRIBUTION WIDTH 14.8 % (11.5-14.5); WHITE BLOOD COUNT 8.5 x10^3/uL (4.0-11.0)
[2017-09-08] MEDS: oxyCODONE/APAP 5/325 1 TAB TABLET PO (06:59)
[2017-09-08] MEDS: NICOTINE 21MG PATCH. TD (07:47)
[2017-09-08] MEDS: SENNOSIDES/DOCUSATE 8.6/50MG TABLET. PO (07:47)
[2017-09-08] MEDS: POLYETHYLENE GLYCOL 3350 17 GM PACKET. PO (07:49)
[2017-09-08] MEDS: AMIODARONE HCL 200 MG TABLET. PO (07:49)
[2017-09-08] MEDS: amLODIPine BESYLATE 10 MG TABLET PO (07:50)
[2017-09-08] MEDS: PANTOPRAZOLE 40 MG TABLET.DR. PO (07:51)
[2017-09-08] MEDS: CARVEDILOL 6.25 MG TABLET. PO (07:51)
[2017-09-08] MEDS: ASPIRIN ENTERIC COATED 325 MG TABLET.DR. PO (07:59)
== END 2017-09-08 13:30 | disposition home health service (06) | DRG 219 ==
LOC: 2 SOUTH 09-04 14:34 → ER 23:42 → 2 SOUTH 09-05 19:40 → 1 WEST ICU 09-01 05:30
PROVIDERS: Internal Medicine
PROC: 02RX0JZ Replacement of Thoracic Aorta, Ascending/Arch with Synthetic Substitute, Open Approach (ICD-10-PCS; principal; 2017-09-01 06:00)
PROC: 5A1221Z Performance of Cardiac Output, Continuous (ICD-10-PCS; 2017-09-01 06:00)
PROC: 06H033Z Insertion of Infusion Device into Inferior Vena Cava, Percutaneous Approach (ICD-10-PCS; 2017-09-01 06:00)
PROC: 5A1D90Z Performance of Urinary Filtration, Continuous, Greater than 18 hours Per Day (ICD-10-PCS; 2017-09-01 06:00)
PROC: 30233L1 Transfusion of Nonautologous Fresh Plasma into Peripheral Vein, Percutaneous Approach (ICD-10-PCS; 2017-09-01 06:00)
PROC: 30233N1 Transfusion of Nonautologous Red Blood Cells into Peripheral Vein, Percutaneous Approach (ICD-10-PCS; 2017-09-01 06:00)
PROC: 30233R1 Transfusion of Nonautologous Platelets into Peripheral Vein, Percutaneous Approach (ICD-10-PCS; 2017-09-01 06:00)
PROC: 30233K1 Transfusion of Nonautologous Frozen Plasma into Peripheral Vein, Percutaneous Approach (ICD-10-PCS; 2017-09-01 06:00)
PROC: 5A1223Z Performance of Cardiac Pacing, Continuous (ICD-10-PCS; 2017-09-01 06:00)
PROC: B246ZZ4 Ultrasonography of Right and Left Heart, Transesophageal (ICD-10-PCS; 2017-09-01 06:00)
PROC: 02H633Z Insertion of Infusion Device into Right Atrium, Percutaneous Approach (ICD-10-PCS; 2017-09-01 06:07)
PROC: B244ZZZ Ultrasonography of Right Heart (ICD-10-PCS; 2017-09-01 06:07)
PROC: 06PY33Z Removal of Infusion Device from Lower Vein, Percutaneous Approach (ICD-10-PCS; 2017-09-01 06:07)
PROC: 02H633Z Insertion of Infusion Device into Right Atrium, Percutaneous Approach (ICD-10-PCS; 2017-09-01 06:07)
PROC: 0JH63XZ Insertion of Tunneled Vascular Access Device into Chest Subcutaneous Tissue and Fascia, Percutaneous Approach (ICD-10-PCS; 2017-09-01 06:07)
DX: I71.01 Dissection of thoracic aorta (principal); I50.21 Acute systolic (congestive) heart failure; N17.0 Acute kidney failure with tubular necrosis; I50.23 Acute on chronic systolic (congestive) heart failure; N18.6 End stage renal disease; I31.4 Cardiac tamponade; I42.9 Cardiomyopathy, unspecified; E87.2 Acidosis; D62 Acute posthemorrhagic anemia; I31.2 Hemopericardium, not elsewhere classified; I13.2 Hypertensive heart and chronic kidney disease with heart failure and with stage 5 chronic kidney disease, or end stage renal disease; I71.1 Thoracic aortic aneurysm, ruptured; I35.1 Nonrheumatic aortic (valve) insufficiency; F17.210 Nicotine dependence, cigarettes, uncomplicated; E87.5 Hyperkalemia; G47.33 Obstructive sleep apnea (adult) (pediatric); Z99.2 Dependence on renal dialysis
CPT/HCPCS: 36415; 36556; 36581; 36600; 71045; 71250; 71275; 72170; 74175; 74176; 76937; 77001; 80048; 80053; 80061; 81001; 82310; 82803; 82805; 82962; 83036; 83605; 83690; 83735; 83880; 84132; 84145; 84484; 85014; 85018; 85025; 85027; 85347; 85384; 85610; 85730; 86704; 86706; 86850; 86900; 86901; 86920; 86927; 87040; 87340; 87641; 88304; 93005; 93312; 93320; 93325; 94002; 94618; 94640; 94760; 96361; 96365; 96366; 96368; 97116-GP; 97163-GP; 97166-GO; 97530-GO; 97530-GP; 97535-GO; 99152; 99291; C1729; C1750; C1768; C1769; C1781; C1892; C9113; J0171; J0282; J0330; J0690; J0780; J1100; J1644; J1815; J2250; J2270; J2405; J2440; J2704; J3010; J3370; J3475; J3490; J7030; J7040; J7042; J7050; J7120; J7613; J7620; P9016; P9017; P9035; P9041; P9046; Q9967

== ENCOUNTER → 2017-09-23 | Outpatient (CLI) | payer BC | END | disposition home or self-care (01) | LOC: RAD 12:08 | DX: I71.01 Dissection of thoracic aorta (principal) | CPT/HCPCS: 71046 ==

== ENCOUNTER → 2017-12-13 | Day surgery (SDC) | payer BC ==
[~2017-12-13] VITALS: Ht 185.4 cm; Wt 99.8 kg
[~2017-12-13] MED LIST: ALBU2.5V5 NEB; AMIO200T4 PO; AMLO10TA6 PO; ASPI325T11 PO; ATOR40TA59 PO; BUPIVACAINE 0.5% 50 ML VIAL. ONE; BUPIVACAINE-EPI 0.5%-1:200000 50 ML VIAL. IJ ONE; CARV6.252 PO; DEXAMETHASONE SOD PHOS 20 MG/5 ML VIAL. ONE; GLYCOPYRROLATE 1 MG/5 ML VIAL. ONE; HEPARIN SODIUM 5,000 UNIT in IV NORMAL SALINE 500ML BAG 500 ML IRR ONE; HYDROmorphone 2 MG/ML VIAL IV PRN; IV NORMAL SALINE 1000ML BAG 1,000 ML IV SCH; IV RINGERS,LACTATED 1000ML 1,000 ML IV SCH; LIDOCAINE 1% PF 2 ML VIAL. ID PRN; LOSA25TA PO; LOSA50TA2 PO; MORPHINE SULFATE 2 MG/ML VIAL. IV PRN; NEOSTIGMINE METHYLSULFATE 5 MG/5 ML SYRINGE. ONE; ONDANSETRON PF 4 MG/2 ML VIAL. IV PRN; ONDANSETRON PF 4 MG/2 ML VIAL. ONE; OXYC-323 PO; OXYC1TAB7 PO; PHENYLEPHRINE in 0.9% NACL PF 1 MG/10 ML SYRINGE. IV ONE; PROCHLORPERAZINE 10 MG/2 ML VIAL. IV PRN; PROPOFOL 20 ML IV ONE; Pantoprazole PO; ROCURONIUM 50 MG/5 ML VIAL. ONE; SENN-22 PO; SEVOFLURANE 31 TO 60 MINUTES. IH ONE; ePHEDrine PF IN SALINE 50 MG/5 ML DISP.SYRIN IV ONE; fentaNYL PF VIAL 100 MCG/2 ML VIAL IV PRN; fentaNYL PF VIAL 100 MCG/2 ML VIAL ONE; oxyCODONE/APAP 5/325 1 TAB TABLET PO ONE
[2017-12-13 10:18] LABS: CALCIUM 8.5 mg/dL (8.5-10.1); CREATININE 9.3 mg/dL (0.7-1.3); GFR 7.4; POTASSIUM 4.9 mmol/L (3.5-5.1)
--- NOTE | 2017-12-13 11:16 | PDOC ---
BRIEF OPERATIVE NOTE Date: Dec 13, 2017 Pre-Op Diagnosis ESRD Post-Op Diagnosis same Procedure Performed l/s placement PD catheter Surgeon Migue Anesthesia Type: General Blood Loss 10cc IV Fluid 500cc Urine Output 50cc Specimens Obtained none Findings no visible abnormalities Complications none Operative Note Wk # [id number] OSMANI JUAN MD Dec 13, 2017 11:16
--- NOTE | 2017-12-13 11:33 | OP ---
DATE OF SURGERY: 12/13/2017 PREOPERATIVE DIAGNOSIS: End-stage renal disease. POSTOPERATIVE DIAGNOSIS: End-stage renal disease. PROCEDURE: Laparoscopic placement of peritoneal dialysis catheter. SURGEON: Osmani Juan MD ANESTHESIA: General endotracheal. ESTIMATED BLOOD LOSS: 10 mL. IV FLUID: 500 mL. URINE OUTPUT: 50 mL. INDICATIONS: The patient is a 47-year-old, on hemodialysis, requesting PD catheter. OPERATIVE FINDINGS: No adhesions or abnormalities seen laparoscopically. DESCRIPTION OF PROCEDURE: The patient brought to the operating suite, given a general endotracheal anesthetic and the abdomen prepped and draped in usual sterile fashion. Douglas catheter placed to dependent drainage prior to prep. An epigastric incision was infiltrated with local anesthetic, incised and a 5 mm Visiport used to safely gain access into the abdominal cavity, taking care to avoid injury to abdominal contents. Pneumoperitoneum established. Camera inserted. Inspection carried out with results as noted above. Under direct vision, the previously selected site for catheter insertion was infiltrated with local anesthetic, incised and the Cook needle passed into the abdominal cavity. Needle removed. A dilator was passed. Catheter was then placed in the pelvis and the Dacron cuff seated just above the peritoneum. Access catheter tunneled to the access site, abdomen decompressed, ports removed. The catheter was flushed with 500 mL of normal saline, which was readily accepted and drained a similar amount. Incisions closed with interrupted 3-0 Vicryl in the subcutaneous tissue, subcuticular 4-0 Monocryl with Steri-Strips for the skin. Sterile dressings applied. Douglas catheter removed. The patient was awakened from his anesthetic and taken to the Recovery Room in satisfactory condition. Prior to placing dressings, the catheter was "packed" with 60 mL of heparinized saline. OSMANI JUAN MD DR: FRANK/mima JOB#: [id number] / [id number]
--- NOTE | 2017-12-13 11:52 | DISCH ---
DISCHARGE INSTRUCTIONS Condition on Discharge Condition on Discharge: Stable Activity After Discharge Activity Instructions for Disc: Activity as tolerated, Avoid exertion Lifting Instructions after Dis: No heavy lifting Exercise Instruction after Dis: Progress as tolerated Driving Instructions after Dis: Do not drive today Weight Bearing Status after Di: As tolerated Diet after Discharge Diet after Discharge: Cardiac, Renal Dialysis Wound Incision Care Wound/Incision Care: Ice to area for comfort, Keep wound/cast CDI, May get incision wet Checks after Discharge Checks after discharge: Check blood press - daily, Check your Temp as needed, Weigh Yourself Daily Follow-Up Follow up with: dialysis center, OSMANI Nina MD Dec 13, 2017 11:52
[2017-12-13 12:20] VITALS: BP 118/64
== END | disposition home or self-care (01) ==
LOC: SURG 08:33
PROVIDERS: ATTEND Surgery
DX: N18.6 End stage renal disease (principal); I42.9 Cardiomyopathy, unspecified; I13.2 Hypertensive heart and chronic kidney disease with heart failure and with stage 5 chronic kidney disease, or end stage renal disease; G47.33 Obstructive sleep apnea (adult) (pediatric); I50.9 Heart failure, unspecified; Z99.2 Dependence on renal dialysis; Z79.899 Other long term (current) drug therapy; Z95.1 Presence of aortocoronary bypass graft
CPT/HCPCS: 36415; 49324; 80048; 82962; J0690; J1100; J1644; J2370; J2405; J2704; J2710; J3010; J3490; J7030; J7040; A7015

== ENCOUNTER → 2017-12-16 | Emergency (ER) | payer BC ==
[~2017-12-16] VITALS: Ht 182.9 cm; Wt 99.3 kg
[~2017-12-16] MED LIST changes: -BUPIVACAINE 0.5% 50 ML VIAL. ONE; -BUPIVACAINE-EPI 0.5%-1:200000 50 ML VIAL. IJ ONE; -DEXAMETHASONE SOD PHOS 20 MG/5 ML VIAL. ONE; -GLYCOPYRROLATE 1 MG/5 ML VIAL. ONE; -HEPARIN SODIUM 5,000 UNIT in IV NORMAL SALINE 500ML BAG 500 ML IRR ONE; -HYDROmorphone 2 MG/ML VIAL IV PRN; -IV NORMAL SALINE 1000ML BAG 1,000 ML IV SCH; -IV RINGERS,LACTATED 1000ML 1,000 ML IV SCH; -LIDOCAINE 1% PF 2 ML VIAL. ID PRN; -MORPHINE SULFATE 2 MG/ML VIAL. IV PRN; -NEOSTIGMINE METHYLSULFATE 5 MG/5 ML SYRINGE. ONE; -ONDANSETRON PF 4 MG/2 ML VIAL. IV PRN; -ONDANSETRON PF 4 MG/2 ML VIAL. ONE; -PHENYLEPHRINE in 0.9% NACL PF 1 MG/10 ML SYRINGE. IV ONE; -PROCHLORPERAZINE 10 MG/2 ML VIAL. IV PRN; -PROPOFOL 20 ML IV ONE; -ROCURONIUM 50 MG/5 ML VIAL. ONE; -SEVOFLURANE 31 TO 60 MINUTES. IH ONE; -ePHEDrine PF IN SALINE 50 MG/5 ML DISP.SYRIN IV ONE; -fentaNYL PF VIAL 100 MCG/2 ML VIAL IV PRN; -fentaNYL PF VIAL 100 MCG/2 ML VIAL ONE; -oxyCODONE/APAP 5/325 1 TAB TABLET PO ONE
--- NOTE | 2017-12-16 21:18 | PHYS DOC ---
Past Medical History Past Medical History: High Cholesterol, Hypertension, Renal Failure, Other Additional Past Medical Histor: SLEEP APNEA, aortic valve disease Past Surgical History: Other Additional Past Surgical Histo: aortic valve repair Alcohol Use: Sober Drug Use: None Adult General Chief Complaint Chief Complaint: UPPER EXTREMITY PAIN HPI HPI Patient is a 47 year old with past medical history end-stage renal disease, hypertension, hyperlipidemia, obstructive sleep apnea, aortic valve disease presenting for acute onset left shoulder and arm pain. Patient notes he was relaxing at home when he sat up in bed and noted that he had acute onset achy left shoulder pain with radiation down his arm. Patient notes that pain had a severity of 9 out of 10 and lasted for approximately 20 minutes. He denies any or shoulder pain at this point. Patient denies any associated chest pain, shortness of breath, diaphoresis, abdominal pain, back pain, neck pain, or nausea. Patient notes he had a similar episode the right extremity on Tuesday. Patient notes he had a peritoneal dialysis catheter placed on Tuesday. Patient notes that he had his regularly scheduled dialysis today. Patient notes he goes to dialysis on Mondays and Wednesdays and Fridays. Patient notes that prior to the shoulder pain he felt fine today but notes that when he left dialysis the was a little hypotensive with systolic blood pressure in the 80s. Review of Systems Review of Systems Constitutional: Denies fever or chills [] Eyes: Denies change in visual acuity, redness, or eye pain [] HENT: Denies nasal congestion or sore throat [] Respiratory: Denies cough or shortness of breath [] Cardiovascular: Denies chest pain or palpitations[] GI: Denies abdominal pain, nausea, vomiting, bloody stools or diarrhea [] : Denies dysuria or hematuria [] Musculoskeletal: Denies back pain. Notes Left shoulder and elbow pain [] Integument: Denies rash or skin lesions [] Neurologic: Denies headache, focal weakness or sensory changes [] Complete systems were reviewed and found to be within normal limits, except as documented in this note. Current Medications Current Medications Current Medications Medications (Trade) Dose Ordered Sig/Jacob Start Time Stop Time Status Last Admin Dose Admin Acetaminophen/ Hydrocodone Bitart (Lortab 5/325) 1 tab 1X ONCE 12/16/17 23:30 12/16/17 23:31 12/16/17 23:09 1 TAB Aspirin (Cristine Aspirin) 325 mg 1X ONCE 12/16/17 22:00 12/16/17 22:01 DC 12/16/17 22:00 325 MG Allergies Allergies Allergies Coded Allergies Type Severity Reaction Last Updated Verified shellfish derived Allergy Severe 12/13/17 Yes Physical Exam Physical Exam Constitutional: Well developed, well nourished, no acute distress, non-toxic appearance. [] HENT: Normocephalic, atraumatic, oropharynx moist, no oral exudates, nose normal. [] Eyes: PERRLA, EOMI, conjunctiva normal, no discharge. [] Neck: Normal range of motion, no tenderness, supple, no stridor. [] Cardiovascular:Heart rate regular rhythm, no murmur [] Lungs & Thorax: Bilateral breath sounds clear to auscultation [] Abdomen: Bowel sounds normal, soft, no tenderness, no masses, no pulsatile masses. [] Skin: Warm, dry, no erythema, no rash. [] Back: No tenderness, no CVA tenderness. [] Extremities: No tenderness, no cyanosis, no clubbing, ROM intact, no edema. [] Neurologic: Alert and oriented X 3, normal motor function, normal sensory function, no focal deficits noted. [] Psychologic: Affect normal, judgement normal, mood normal. [] Current Patient Data Vital Signs Vital Signs Date Time Temp Pulse Resp B/P (MAP) Pulse Ox O2 Delivery O2 Flow Rate FiO2 12/16/17 23:10 98.9 68 18 104/64 (77) 99 Room Air 98.9 Lab Values Laboratory Tests Test 12/16/17 21:58 White Blood Count 6.4 x10^3/uL (4.0-11.0) Red Blood Count 4.57 x10^6/uL (4.30-5.70) Hemoglobin 13.6 g/dL (13.0-17.5) Hematocrit 40.1 % (39.0-53.0) Mean Corpuscular Volume 88 fL (79-100) Mean Corpuscular Hemoglobin 30 pg (25-35) Mean Corpuscular Hemoglobin Concent 34 g/dL (31-37) Red Cell Distribution Width 16.7 % (11.5-14.5) H Platelet Count 208 x10^3/uL (140-400) Neutrophils (%) (Auto) 55 % (31-73) Lymphocytes (%) (Auto) 27 % (24-48) Monocytes (%) (Auto) 14 % (0-9) H Eosinophils (%) (Auto) 3 % (0-3) Basophils (%) (Auto) 1 % (0-3) Neutrophils # (Auto) 3.5 x10^3uL (1.8-7.7) Lymphocytes # (Auto) 1.7 x10^3/uL (1.0-4.8) Monocytes # (Auto) 0.9 x10^3/uL (0.0-1.1) Eosinophils # (Auto) 0.2 x10^3/uL (0.0-0.7) Basophils # (Auto) 0.0 x10^3/uL (0.0-0.2) Prothrombin Time 13.8 SEC (11.7-14.0) Prothrombin Time INR 1.1 (0.8-1.1) PTT 38 SEC (24-38) Sodium Level 140 mmol/L (136-145) Potassium Level 4.3 mmol/L (3.5-5.1) Chloride Level 99 mmol/L (98-107) Carbon Dioxide Level 34 mmol/L (21-32) H Anion Gap 7 (6-14) Blood Urea Nitrogen 40 mg/dL (8-26) H Creatinine 7.3 mg/dL (0.7-1.3) H Estimated GFR (Cockcroft-Gault) 9.7 BUN/Creatinine Ratio 5 (6-20) L Glucose Level 95 mg/dL (70-99) Calcium Level 8.7 mg/dL (8.5-10.1) Magnesium Level 1.8 mg/dL (1.8-2.4) Total Bilirubin 0.4 mg/dL (0.2-1.0) Aspartate Amino Transferase (AST) 12 U/L (15-37) L Alanine Aminotransferase (ALT) 10 U/L (16-63) L Alkaline Phosphatase 91 U/L (46-116) Creatine Kinase 55 U/L (39-308) Creatine Kinase MB (Mass) 0.6 ng/mL (0.0-3.6) Creatine Kinase MB Relative Index % (0-4) Troponin I Quantitative < 0.017 ng/mL (0.000-0.055) Total Protein 7.0 g/dL (6.4-8.2) Albumin 3.5 g/dL (3.4-5.0) Albumin/Globulin Ratio 1.0 (1.0-1.7) Lipase 136 U/L (73-393) Laboratory Tests 12/16/17 21:58 Laboratory Tests 12/16/17 21:58 EKG EKG @2211: NSR at 77bpm, nonspecific t wave inversion I-II and V4-V6 Radiology/Procedures Radiology/Procedures [] Course & Med Decision Making Course & Med Decision Making Pertinent Labs and Imaging studies reviewed. (See chart for details) [] Dragon Disclaimer Dragon Disclaimer This electronic medical record was generated, in whole or in part, using a voice recognition dictation system. Departure Departure Impression: Primary Impression: Left arm pain Additional Impression: Postoperative pain Disposition: 01 HOME, SELF-CARE Condition: STABLE Referrals: JEANIE DU MD (PCP) Patient Instructions: Pain Relief Preoperatively and Postoperatively Additional Instructions: Continue to use your previously prescribed pain medication as needed. Problem Qualifiers ADRIEL MAXWELL DO Dec 16, 2017 21:18
[2017-12-16] MEDS: ASPIRIN 325 MG TABLET PO ONE (22:00)
[2017-12-16 22:06] LABS: BASO % 1 % (0-3); EOS # 0.2 x10^3/uL (0.0-0.7); EOS % 3 % (0-3); HEMATOCRIT 40.1 % (39.0-53.0); HEMOGLOBIN 13.6 g/dL (13.0-17.5); LYMPH # 1.7 x10^3/uL (1.0-4.8); LYMPH % 27 % (24-48); MEAN CORPUSCULAR HEMOGLOBIN 30 pg (25-35); MEAN CORPUSCULAR HGB CONC 34 g/dL (31-37); MEAN CORPUSCULAR VOLUME 88 fL (79-100); MONO # 0.9 x10^3/uL (0.0-1.1); MONO % 14 % (0-9); NEUT # 3.5 x10^3uL (1.8-7.7); NEUT % 55 % (31-73); PLATELET COUNT 208 x10^3/uL (140-400); RED BLOOD COUNT 4.57 x10^6/uL (4.30-5.70); RED CELL DISTRIBUTION WIDTH 16.7 % (11.5-14.5); WHITE BLOOD COUNT 6.4 x10^3/uL (4.0-11.0)
[2017-12-16 22:15] LABS: PROTHROMBIN TIME PATIENT 13.8 SEC (11.7-14.0)
[2017-12-16 22:16] LABS: CALCIUM 8.7 mg/dL (8.5-10.1); CREATININE 7.3 mg/dL (0.7-1.3); GFR 9.7; POTASSIUM 4.3 mmol/L (3.5-5.1)
[2017-12-16 22:22] LABS: ALBUMIN 3.5 g/dL (3.4-5.0); MAGNESIUM 1.8 mg/dL (1.8-2.4); TOTAL BILIRUBIN 0.4 mg/dL (0.2-1.0)
[2017-12-16 22:29] LABS: CREATINE KINASE 55 U/L (39-308)
[2017-12-16] MEDS: HYDROcodone/APAP 5/325MG 1 TAB TABLET PO ONE (23:09)
[2017-12-16 23:10] VITALS: BP 104/64
--- NOTE | 2017-12-17 01:25 | EKG ---
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
== END ==
LOC: ER 19:34
DX: M79.602 Pain in left arm (principal); G89.18 Other acute postprocedural pain; M25.512 Pain in left shoulder; I12.0 Hypertensive chronic kidney disease with stage 5 chronic kidney disease or end stage renal disease; N18.6 End stage renal disease; E78.00 Pure hypercholesterolemia, unspecified; G47.33 Obstructive sleep apnea (adult) (pediatric); Z99.2 Dependence on renal dialysis; Z91.013 Allergy to seafood
CPT/HCPCS: 36415; 80053; 82553; 83690; 83735; 84484; 85025; 85610; 85730; 93005; 99285-25

== ENCOUNTER 2018-01-09 18:14 | Emergency (ER) | payer BC ==
[~2018-01-09] VITALS: Ht 185.4 cm; Wt 99.8 kg
[2018-01-09 18:24] VITALS: BP 116/65
--- NOTE | 2018-01-09 18:43 | PHYS DOC ---
Past Medical History Past Medical History: Renal Disease, Other Additional Past Medical Histor: SLEEP APNEA, aortic valve disease Past Surgical History: Other Additional Past Surgical Histo: aortic valve repair Alcohol Use: None Drug Use: None Adult General Chief Complaint Chief Complaint: CHEST PAIN-CARDIAC NATURE HPI HPI Patient is a 48-year-old male who presents with complaint of left-sided chest discomfort that started about an hour ago. Patient states that pain lasted for only about 3 minutes. He states that it started when he was lying on his left side. He states the pain was worsened if he took in a deep breath. He states that after onset of pain, he sat up and started taking some deep breaths and the pain resolves. He states the pain was also causing an ache in his left arm. Currently he denies any pain whatsoever. He indicates that he had no nausea, vomiting or diaphoresis. He states that at its worst the pain was moderate, when he took in a deep breath while lying on his side. He denies any shortness of breath. He also denies any cough or fever. Review of Systems Review of Systems Constitutional: Denies fever or chills [] Respiratory: Denies cough or shortness of breath [] Cardiovascular: Complains of chest pain[] GI: Denies abdominal pain, nausea, vomiting [] Musculoskeletal: Denies back pain or joint pain [] Integument: Denies rash or skin lesions [] All other systems were reviewed and found to be within normal limits, except as documented in this note. Current Medications Current Medications Current Medications Medications (Trade) Dose Ordered Sig/Jacob Start Time Stop Time Status Last Admin Dose Admin Aspirin (Children'S Aspirin) 324 mg 1X ONCE 01/09/18 18:45 01/09/18 18:46 DC 01/09/18 19:03 324 MG Allergies Allergies Allergies Coded Allergies Type Severity Reaction Last Updated Verified shellfish derived Allergy Severe 12/13/17 Yes Physical Exam Physical Exam Constitutional: Well developed, well nourished, no acute distress, non-toxic appearance. [] HENT: Normocephalic, atraumatic, bilateral external ears normal, oropharynx moist, no oral exudates, nose normal. [] Eyes: PERRLA, EOMI, conjunctiva normal, no discharge. [] Neck: Normal range of motion, no tenderness, supple, no stridor. [] Cardiovascular:Heart rate regular rhythm [] Lungs & Thorax: Bilateral breath sounds clear to auscultation [] Abdomen: Bowel sounds normal, soft, no tenderness. [] Skin: Warm, dry, no erythema, no rash. [] Extremities: No tenderness, no cyanosis, no clubbing, ROM intact, no edema. [] Neurologic: Alert and oriented X 3, normal motor function, normal sensory function, no focal deficits noted. [] Current Patient Data Vital Signs Vital Signs Date Time Temp Pulse Resp B/P (MAP) Pulse Ox O2 Delivery O2 Flow Rate FiO2 01/09/18 18:24 98.7 69 20 116/65 (82) 97 Room Air 98.7 Lab Values Laboratory Tests Test 01/09/18 18:47 01/09/18 21:25 White Blood Count 6.2 x10^3/uL (4.0-11.0) Red Blood Count 4.38 x10^6/uL (4.30-5.70) Hemoglobin 12.8 g/dL (13.0-17.5) L Hematocrit 38.3 % (39.0-53.0) L Mean Corpuscular Volume 87 fL (79-100) Mean Corpuscular Hemoglobin 29 pg (25-35) Mean Corpuscular Hemoglobin Concent 33 g/dL (31-37) Red Cell Distribution Width 16.0 % (11.5-14.5) H Platelet Count 218 x10^3/uL (140-400) Neutrophils (%) (Auto) 49 % (31-73) Lymphocytes (%) (Auto) 34 % (24-48) Monocytes (%) (Auto) 12 % (0-9) H Eosinophils (%) (Auto) 5 % (0-3) H Basophils (%) (Auto) 1 % (0-3) Neutrophils # (Auto) 3.1 x10^3uL (1.8-7.7) Lymphocytes # (Auto) 2.1 x10^3/uL (1.0-4.8) Monocytes # (Auto) 0.7 x10^3/uL (0.0-1.1) Eosinophils # (Auto) 0.3 x10^3/uL (0.0-0.7) Basophils # (Auto) 0.0 x10^3/uL (0.0-0.2) Sodium Level 139 mmol/L (136-145) Potassium Level 4.0 mmol/L (3.5-5.1) Chloride Level 101 mmol/L (98-107) Carbon Dioxide Level 32 mmol/L (21-32) Anion Gap 6 (6-14) Blood Urea Nitrogen 31 mg/dL (8-26) H Creatinine 6.5 mg/dL (0.7-1.3) H Estimated GFR (Cockcroft-Gault) 11.1 BUN/Creatinine Ratio 5 (6-20) L Glucose Level 72 mg/dL (70-99) Calcium Level 9.0 mg/dL (8.5-10.1) Phosphorus Level 2.9 mg/dL (2.6-4.7) Magnesium Level 1.8 mg/dL (1.8-2.4) Total Bilirubin 0.4 mg/dL (0.2-1.0) Aspartate Amino Transferase (AST) 13 U/L (15-37) L Alanine Aminotransferase (ALT) 20 U/L (16-63) Alkaline Phosphatase 118 U/L (46-116) H Troponin I Quantitative < 0.017 ng/mL (0.000-0.055) < 0.017 ng/mL (0.000-0.055) Total Protein 7.5 g/dL (6.4-8.2) Albumin 3.7 g/dL (3.4-5.0) Albumin/Globulin Ratio 1.0 (1.0-1.7) Laboratory Tests 01/09/18 18:47 Laboratory Tests 01/09/18 18:47 EKG EKG [] Interpretation Time: EKG demonstrates normal sinus rhythm with rate of 67. Radiology/Procedures Radiology/Procedures [] Impressions: Chest x-ray demonstrates no acute process. Course & Med Decision Making Course & Med Decision Making Pertinent Labs and Imaging studies reviewed. (See chart for details) [] Dragon Disclaimer Dragon Disclaimer This electronic medical record was generated, in whole or in part, using a voice recognition dictation system. Departure Departure Impression: Primary Impression: Chest wall pain Disposition: HOME, SELF-CARE Condition: STABLE Referrals: JEANIE DU MD (PCP) Patient Instructions: Chest Wall Pain VINNIE RUIZ Jr. DO Jan 09, 2018 18:43
[2018-01-09] MEDS ORDERED: ASPIRIN CHEWABLE 81 MG TABLET. PO ONE (18:45)
[2018-01-09 18:58] LABS: BASO % 1 % (0-3); EOS # 0.3 x10^3/uL (0.0-0.7); EOS % 5 % (0-3); HEMATOCRIT 38.3 % (39.0-53.0); HEMOGLOBIN 12.8 g/dL (13.0-17.5); LYMPH # 2.1 x10^3/uL (1.0-4.8); LYMPH % 34 % (24-48); MEAN CORPUSCULAR HEMOGLOBIN 29 pg (25-35); MEAN CORPUSCULAR HGB CONC 33 g/dL (31-37); MEAN CORPUSCULAR VOLUME 87 fL (79-100); MONO # 0.7 x10^3/uL (0.0-1.1); MONO % 12 % (0-9); NEUT # 3.1 x10^3uL (1.8-7.7); NEUT % 49 % (31-73); PLATELET COUNT 218 x10^3/uL (140-400); RED BLOOD COUNT 4.38 x10^6/uL (4.30-5.70); WHITE BLOOD COUNT 6.2 x10^3/uL (4.0-11.0)
[2018-01-09 19:04] LABS: CREATININE 6.5 mg/dL (0.7-1.3); GFR 11.1
[2018-01-09 19:10] LABS: ALBUMIN 3.7 g/dL (3.4-5.0); MAGNESIUM 1.8 mg/dL (1.8-2.4); PHOSPHORUS 2.9 mg/dL (2.6-4.7); TOTAL BILIRUBIN 0.4 mg/dL (0.2-1.0); TOTAL PROTEIN 7.5 g/dL (6.4-8.2)
--- NOTE | 2018-01-09 20:47 | RAD ---
EXAM: CHEST 1 VIEW. HISTORY: Chest pain. COMPARISON: 09/23/2017. FINDINGS: A frontal view of the chest is obtained. A left internal jugular hemodialysis catheter has its tip in the right atrium. Median sternotomy changes are noted. There are calcified granulomas on the right. There are no confluent infiltrates. There is no pneumothorax or pleural effusion. The heart is not enlarged. IMPRESSION: 1. No confluent infiltrates. Electronically signed by: Graham Chandler MD (01/09/2018 8:44 PM) [facility]
--- NOTE | 2018-01-10 00:32 | EKG ---
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
== END 2018-01-09 22:43 | disposition home or self-care (01) ==
LOC: ER 18:14
DX: R07.89 Other chest pain (principal); Z91.013 Allergy to seafood
CPT/HCPCS: 36415; 71045; 80053; 83735; 84100; 84484; 85025; 93005; 99285-25

== ENCOUNTER 2018-09-03 07:45 | Emergency (ER) | payer BC ==
[~2018-09-03] VITALS: Ht 185.4 cm; Wt 117.0 kg
[~2018-09-03 07:45] MED LIST changes: -AMLO10TA6 PO; +AMLO10TA8 PO; +CARV6.2511 PO; -CARV6.252 PO; +LOSA-73 PO; -LOSA50TA2 PO; -OXYC-323 PO; +OXYC1TAB15 PO
[2018-09-03 07:52] VITALS: BP 161/83
--- NOTE | 2018-09-03 08:35 | RAD ---
Examination: 3 views of the left shoulder History: History of fall, pain Comparison: None available Findings: The humerus head is within the glenoid. The acromioclavicular joint, glenohumeral joint grossly appears unremarkable. There is no acute fracture or dislocation identified. Impression: No acute osseous findings.
--- NOTE | 2018-09-03 08:52 | PHYS DOC ---
Past Medical History Past Medical History: Hypertension, Renal Disease, Renal Failure, Other Additional Past Medical Histor: SLEEP APNEA, aortic valve disease Past Surgical History: Other Additional Past Surgical Histo: aortic valve repair,DIALYSIS CATH L CHEST/L ABDOMEN Alcohol Use: None Drug Use: None Adult General Chief Complaint Chief Complaint: SHOULDER INJURY [facility] HPI Patient is a 48 year old right-handed male who presents with complaining of left shoulder pain. Patient states he had an accidental fall this morning and landed on his left side. Patient complaining of pain in left shoulder as 2/10 that getting worse with movement. Patient denies other injuries and focal neurodeficit. Review of Systems Review of Systems Constitutional: Denies fever or chills [] Eyes: Denies change in visual acuity, redness, or eye pain [] HENT: Denies nasal congestion or sore throat [] Respiratory: Denies cough or shortness of breath [] Cardiovascular: No additional information not addressed in HPI [] GI: Denies abdominal pain, nausea, vomiting, bloody stools or diarrhea [] : Denies dysuria or hematuria [] Musculoskeletal: Denies back pain, reports joint pain [] Integument: Denies rash or skin lesions [] Neurologic: Denies headache, focal weakness or sensory changes [] Endocrine: Denies polyuria or polydipsia [] All other systems were reviewed and found to be within normal limits, except as documented in this note. Allergies Allergies Allergies Coded Allergies Type Severity Reaction Last Updated Verified shellfish derived Allergy Severe 12/13/17 Yes Physical Exam Physical Exam Constitutional: Well developed, well nourished, no acute distress, non-toxic appearance. [] HENT: Normocephalic, atraumatic. Eyes: PERRLA, EOMI, conjunctiva normal, no discharge. [] Neck: Normal range of motion, no tenderness, supple, no stridor. [] Cardiovascular:Heart rate regular rhythm, no murmur [] Lungs & Thorax: Bilateral breath sounds clear to auscultation [] Extremities: Left shoulder without deformity or edema or constipation, no neurovascular deficit, painful range of abduction, no tenderness, no cyanosis, no clubbing, ROM intact, no edema. [] Neurologic: Alert and oriented X 3, normal motor function, normal sensory function, no focal deficits noted. [] Psychologic: Affect normal, judgement normal, mood normal. [] Current Patient Data Vital Signs Vital Signs Date Time Temp Pulse Resp B/P (MAP) Pulse Ox O2 Delivery O2 Flow Rate FiO2 09/03/18 07:52 97.8 72 14 161/83 (109) 97 Room Air 97.8 EKG EKG [] Radiology/Procedures Radiology/Procedures [facility] [address] [place] [address] IMAGING REPORT Signed PATIENT: LIANA VIRK ACCOUNT: [id number] : 1970 LOCATION: ER AGE: 48 SEX: M EXAM STATUS: REG ER ORD. PHYSICIAN: GEOVANY KELLY MD REASON: fall PROCEDURE: SHOULDER 2+V LEFT Examination: 3 views of the left shoulder History: History of fall, pain Comparison: None available Findings: The humerus head is within the glenoid. The acromioclavicular joint, glenohumeral joint grossly appears unremarkable. There is no acute fracture or dislocation identified. Impression: No acute osseous findings. DICTATED and SIGNED BY: DIMITRY KHAN MD DATE: 09/03/18829 Course & Med Decision Making Course & Med Decision Making Pertinent Imaging studies reviewed. (See chart for details) Evaluation of patient in ER showed 48-year-old male patient on home peritoneal dialysis presented with a fall and injury to left shoulder. Patient had unremarkable physical exam and x-ray of shoulder except for limited range of motion of abduction. Patient has pain medication at home. Plan to apply shoulder sling and instruction to apply ice and follow up with family care physician for possible MRI of shoulder regarding rotator cuff injury. Dragon Disclaimer Dragon Disclaimer This electronic medical record was generated, in whole or in part, using a voice recognition dictation system. Departure Departure Impression: Primary Impression: Left shoulder strain Additional Impression: Injury of left rotator cuff Disposition: 01 HOME, SELF-CARE (@0 851) Condition: STABLE Referrals: JEANIE DU MD (PCP) Patient Instructions: Rotator Cuff Injury, Shoulder Sprain Additional Instructions: Apply ice on left shoulder Follow-up with your primary care physician in 3-5 days Return to ER if not getting better Take home pain medication Problem Qualifiers Primary Impression: Left shoulder strain Encounter type: initial encounter Qualified Codes: S46.912A - Strain of unspecified muscle, fascia and tendon at shoulder and upper arm level, left arm, initial encounter Additional Impression: Injury of left rotator cuff Encounter type: initial encounter Qualified Codes: S46.002A - Unspecified injury of muscle(s) and tendon(s) of the rotator cuff of left shoulder, initial encounter GEOVANY KELLY MD Sep 03, 2018 08:52
== END 2018-09-03 09:12 | disposition home or self-care (01) ==
LOC: ER 07:45
DX: S46.012A Strain of muscle(s) and tendon(s) of the rotator cuff of left shoulder, initial encounter (principal); I10 Essential (primary) hypertension; Z91.013 Allergy to seafood; W06.XXXA Fall from bed, initial encounter; Y93.89 Activity, other specified; Y92.89 Other specified places as the place of occurrence of the external cause; Y99.8 Other external cause status
CPT/HCPCS: 73030; 99284

== ENCOUNTER → 2018-09-12 | Outpatient (CLI) | payer BC ==
[2018-09-03 07:52] VITALS: BP 161/83
--- NOTE | 2018-09-12 11:31 | RAD ---
MR of left shoulder HISTORY: Left shoulder pain after a fall one week ago. TECHNIQUE: Routine multiplanar sequences are obtained. FINDINGS: There is mild motion degradation Acromioclavicular joint is mildly degenerative. Full-thickness rotator cuff tear of the supraspinatus tendon extending through the anterior infraspinatus tendon, measures 4 cm AP diameter 4 cm retraction. Mild muscle atrophy. Partial tearing through the remaining infraspinatus tendon. No significant subscapularis tendon tear. Small subdeltoid bursal effusion. Trace glenohumeral joint effusion. There is mild signal within the posteroinferior labrum, concerning for a tear. There is a subjacent cyst within the glenoid subchondral bone. The biceps tendon is intact. No evidence of bone destruction or acute fracture. IMPRESSION: 1. Full-thickness rupture of the supraspinatus through anterior infraspinatus tendon with retraction. Partial tearing through the more posterior rotator cuff. 2. Posterosuperior labral signal suspicious for small tear although motion degradation could accentuate this finding. Electronically signed by: Pablo Freire MD (09/12/2018 11:29 AM) [id number]
== END | disposition home or self-care (01) ==
LOC: MRI 09:41
PROVIDERS: ATTEND Physical Medicine & Rehabilitation
DX: S46.012A Strain of muscle(s) and tendon(s) of the rotator cuff of left shoulder, initial encounter (principal); M25.412 Effusion, left shoulder; M62.58 Muscle wasting and atrophy, not elsewhere classified, other site; M25.812 Other specified joint disorders, left shoulder; X58.XXXA Exposure to other specified factors, initial encounter; Y93.89 Activity, other specified; Y92.89 Other specified places as the place of occurrence of the external cause; Y99.8 Other external cause status
CPT/HCPCS: 73221

== ENCOUNTER → 2018-11-14 | Outpatient (CLI) | payer BC ==
[~2018-11-14] VITALS: Ht 185.4 cm; Wt 118.8 kg
[~2018-11-14] MED LIST changes: +CONTRAST GIVEN. MC PRN; +FURO20TA3 PO; +IOHEXOL 240 MG/ML 50ML VIAL. IT ONE; +IOHEXOL 240 MG/ML 50ML VIAL. ONE; +VIT1TABL71 PO
[2018-11-14 10:39] VITALS: BP 188/82
--- NOTE | 2018-11-16 11:37 | RAD ---
Fluoroscopic evaluation, peritoneal dialysis catheter 11/14/2018 Indication: Catheter I aspirate or flush Comparison study: None Discussion: Sonographic evaluation of the patient's peritoneal dialysis catheter was performed. For initial fluoroscopic evaluation demonstrates the catheter to be normal in position. The catheter was found to be obstructed normal flush or aspirate. Contrast was administered through the catheter demonstrating minimal flushing through the proximal most sidehole catheter. Multiple guidewire/catheter combinations were advanced through the catheter was ultimately removed and removal of a fibrinous plug. The catheter was then found aspirate and flush normally. Contrast was administered demonstrating no apparent loculation. The patient tolerated this without immediate complication. Total fluoroscopy time: 5 minutes Dose area product:104.0 Gycm2 Impression: Obstruction of the peritoneal dialysis catheter with fibrinous plug, which was removed through wire manipulation.
== END ==
LOC: INTRAD 10:21
PROVIDERS: ATTEND Internal Medicine Nephrology
DX: T82.49XA Other complication of vascular dialysis catheter, initial encounter (principal); Y83.8 Other surgical procedures as the cause of abnormal reaction of the patient, or of later complication, without mention of misadventure at the time of the procedure; Y92.89 Other specified places as the place of occurrence of the external cause
CPT/HCPCS: 36598; 74190; C1769; Q9966

== ENCOUNTER 2018-12-15 07:30 | Day surgery (SDC) | payer BC ==
[~2018-12-15] VITALS: Ht 185.4 cm; Wt 113.8 kg
[~2018-12-15 07:30] MED LIST changes: -CONTRAST GIVEN. MC PRN; +HYDROmorphone 2 MG/ML VIAL IV PRN; -IOHEXOL 240 MG/ML 50ML VIAL. IT ONE; -IOHEXOL 240 MG/ML 50ML VIAL. ONE; +IV RINGERS,LACTATED 1000ML 1,000 ML IV SCH; +LIDOCAINE 1% PF 2 ML VIAL. ID PRN; +MORPHINE SULFATE 2 MG/ML VIAL. IV PRN; +ONDANSETRON PF 4 MG/2 ML VIAL. IV PRN; +PROCHLORPERAZINE 10 MG/2 ML VIAL. IV PRN; +fentaNYL PF VIAL 100 MCG/2 ML VIAL IV PRN
[2018-12-15] MEDS ORDERED: EPINEPHrine VIAL 30 MG/30 ML VIAL ONE (07:32)
[2018-12-15] MEDS ORDERED: BUPIVACAINE MPF 0.5% 30 ML VIAL. ONE (08:30)
[2018-12-15] MEDS ORDERED: MIDAZOLAM HCL/PF 2 MG/2 ML VIAL. ONE (08:30)
[2018-12-15] MEDS ORDERED: DEXAMETHASONE SOD PHOS 20 MG/5 ML VIAL. ONE (08:31)
[2018-12-15] MEDS ORDERED: LIDOCAINE 2% PF 5 ML VIAL. ONE (08:49)
[2018-12-15] MEDS ORDERED: KETOROLAC 30 MG/ML VIAL. ONE (08:49)
[2018-12-15] MEDS ORDERED: PROPOFOL 20 ML IV ONE (08:49)
[2018-12-15] MEDS ORDERED: ONDANSETRON PF 4 MG/2 ML VIAL. ONE (08:50)
[2018-12-15] MEDS ORDERED: PHENYLEPHRINE in 0.9% NACL PF 1 MG/10 ML SYRINGE. IV ONE (10:30)
[2018-12-15] MEDS ORDERED: SEVOFLURANE > 120 MINUTES. IH ONE (12:29)
[2018-12-15] MEDS ORDERED: ACETAMINOPHEN 500 MG TABLET PO ONE (13:30)
[2018-12-15 13:35] VITALS: BP 174/89
[2018-12-15] MEDS ORDERED: OXYC1TAB19 PO (15:46)
[2018-12-15] MEDS ORDERED: oxyCODONE/APAP 7.5/325 1 TAB TABLET ONE (15:50)
--- NOTE | 2018-12-15 15:59 | DISCH ---
DISCHARGE INSTRUCTIONS Condition on Discharge Condition on Discharge: Stable Activity After Discharge Activity Instructions for Disc: Other, see below (in immobilizer at all times except may remove for shower fine motor use of hand only with arm at side in immobilizer) Driving Instructions after Dis: Do not drive today Diet after Discharge Diet after Discharge: Cardiac, Renal Dialysis Diet Texture: Regular Wound Incision Care Wound/Incision Care: Ice to area for comfort, Keep wound/cast CDI (May remove dressings in 2 days may then shower) Checks after Discharge Checks after discharge: Weigh Yourself Daily Community/Resources/Services Services at Discharge: PT EVALUATE & TREAT (no physical therapy until follow- up) Contacting the after DC Call your doctor for: Concerns you may have Follow-Up Follow up with: Dr. Fulton 10 days MERNA FULTON MD Dec 15, 2018 15:59
[2018-12-15] MEDS ORDERED: oxyCODONE/APAP 7.5/325 1 TAB TABLET PO ONE (16:00)
--- NOTE | 2018-12-15 18:16 | PDOC4 ---
Operative Note Operative Note Date of surgery: 12/15/2018 Preoperative diagnosis: Full-thickness retracted rotator cuff tear of supraspinatus and infraspinatus Postoperative diagnosis: Same with anterior acromial spur Operative procedure: Right shoulder arthroscopy arthroscopic subacromial decompression and mini open rotator cuff repair Surgeon: Donaldo Anesthesia: GenSarai Estimated blood loss: 25 mL Complications: None Operative indications: Please see my preoperative history and physical for details operative indications Operative text: Patient was identified procedure verified patient placed in the supine position on the operating table. After adequate amounts of general anesthesia with plus pre-existing scalene block were obtained he was placed in the decubitus position left side up all bony prominences were well-padded and the left shoulder was examined under anesthesia found a full range of motion no instability. The left shoulder was then prepped and draped in standard sterile fashion and after timeout was performed patient procedure identified and verified standard posterior portal was established anterior portal established using spinal needle localization and the shoulder joint was systematically examined. He was noted to have a large retracted full-thickness tear of the supraspinatus and infraspinatus tendons labrum and biceps tendon were intact without evidence of damage or fraying no biceps subluxation was noted glenohumeral joint was overall well-maintained subacromial space was then entered and the rotator cuff was mobilized and a large anterior acromial spur converted to a type I acromion using cutting block technique with an arthroscopic bur. After any bony fragments were cleared away the rotator cuff footprint was prepared with the arthroscopic bur and a total of 4 traction sutures were placed in the rotator cuff tendon to ensure adequate mobility to the footprint area. Given the need for visualization and large nature of the tear I elected to then convert to a mini open incision deltoid splitting laterally and a total of 2 absorbable double loaded anchors from [employer] were placed along the medial row and sutures passed in a simple fashion lateral row fixation incorporated both anchors sutures as well as the traction sutures and were secured laterally with a link anchor obtaining excellent apposition to the medial footprint. The repair was examined in all degrees of internal/external rotation deltoid fascia closed with Vicryl suture subcutaneous closure of the m ini open incision and portals with buried Vicryl suture and skin closure with nylon sterile dressings were applied patient was placed in an immobilizer extirpated returned to recovery room in stable condition having tolerated procedure well MERNA LOPEZ MD Dec 15, 2018 18:16
--- NOTE | 2018-12-15 23:49 | HP ---
ADMIT DATE: 12/15/2018 PREOPERATIVE HISTORY AND PHYSICAL CHIEF COMPLAINT: Left shoulder pain and rotator cuff injury. HISTORY OF PRESENT ILLNESS: The patient is a 48-year-old male that fell on his left side, had the sudden onset of left shoulder pain 09/03/2018 and has had ongoing weakness since then. MRI had showed a full thickness tear of the rotator cuff repair and healing risks in terms of his kidney disease, smoking. He also has a history of aortic dissection and cardiomyopathy in the past and undergoes regular peritoneal dialysis. PAST MEDICAL HISTORY: Significant for chronic renal failure, ascending aortic aneurysm, history of pleural effusion and hypertension. PAST SURGICAL HISTORY: Repair of the aortic dissection, vasectomy, thoracentesis and a placement of a dialysis catheter. FAMILY HISTORY: Mother and father both alive and healthy, some heart disease in other family. SOCIAL HISTORY: He is a former smoker, quit over 3 months ago. Quit alcohol use over 6 months ago and denies drug use. MEDICATIONS: List is reviewed. ALLERGIES: INCLUDE SHELLFISH. REVIEW OF SYSTEMS: He was cleared prior to surgery from his manager print, has no recent chest pain, shortness of breath and is ongoing with his dialysis and other medical problems well controlled. PHYSICAL EXAMINATION: VITAL SIGNS: Per admission sheet. HEENT: Atraumatic, normocephalic. HEART: Regular rate and rhythm. LUNGS: Clear to auscultation bilaterally. ABDOMEN: Benign. EXTREMITIES: Examination of the left shoulder reveals severe pain on attempted abduction, external rotation and weak internal rotation. IMAGING: MRI shows a complete tear of the supraspinatus and infraspinatus tendon with retraction. ASSESSMENT: Traumatic complete tear, left rotator cuff, chronic kidney disease, cardiomyopathy and history of aortic dissection with repair. TREATMENT PLAN: We had previously gone over the recommended attempt of surgical repair of his rotator cuff as well as possible nonoperative management resulting in ongoing weakness and limitations. There is a possibility of nonhealing that is increased due to his kidney disease, smoking and we talked about other surgical risks due to his heart problems as well, although he did get a recent evaluation from Cardiology. All his questions were answered. He wishes to proceed with surgical evaluation and treatment, which will occur on an outpatient basis today. MERNA LOPEZ MD DR: INA/mima JOB#: [id number] / [id number]
== END 2018-12-15 16:05 | disposition home or self-care (01) ==
LOC: SURG 07:30
PROVIDERS: ATTEND Orthopaedic Surgery
DX: M75.101 Unspecified rotator cuff tear or rupture of right shoulder, not specified as traumatic (principal); I12.0 Hypertensive chronic kidney disease with stage 5 chronic kidney disease or end stage renal disease; N18.6 End stage renal disease; E78.00 Pure hypercholesterolemia, unspecified; G47.30 Sleep apnea, unspecified; Z99.2 Dependence on renal dialysis; Z98.890 Other specified postprocedural states; Z87.891 Personal history of nicotine dependence; Z91.013 Allergy to seafood
CPT/HCPCS: 23412; 29822; 64415; A7015; C1713; J0171; J1100; J2001; J2250; J2370; J2405; J2704; J3490; J7120; J1885

== ENCOUNTER 2019-01-19 10:02 | Outpatient (CLI) | payer BC ==
[~2019-01-19] VITALS: Ht 185.4 cm; Wt 109.3 kg
[~2019-01-19 10:02] MED LIST changes: -HYDROmorphone 2 MG/ML VIAL IV PRN; -IV RINGERS,LACTATED 1000ML 1,000 ML IV SCH; -LIDOCAINE 1% PF 2 ML VIAL. ID PRN; -MORPHINE SULFATE 2 MG/ML VIAL. IV PRN; -ONDANSETRON PF 4 MG/2 ML VIAL. IV PRN; +OXYC1TAB19 PO; -PROCHLORPERAZINE 10 MG/2 ML VIAL. IV PRN; -fentaNYL PF VIAL 100 MCG/2 ML VIAL IV PRN
[2019-01-19 10:20] VITALS: BP 151/88
[2019-01-19] MEDS ORDERED: IOHEXOL 240 MG/ML 50ML VIAL. ONE (10:23)
--- NOTE | 2019-01-19 11:14 | NUR ---
pt discharged to home. discharge instructions reviewed with pt
--- NOTE | 2019-01-22 09:09 | RAD ---
Fluoroscopic evaluation of peritoneal dialysis catheter 01/19/2019 Clinical Indication: Nonfunctional PD CATH Discussion: The procedure was explained in its entirety to the patient or the patients designated customer support representative by a member of the treatment team, including a discussion of the risks, benefits and commonly accepted alternatives to the procedure, as well as the expected consequences of no therapy whatsoever. Discussion of the risks included, but was not limited to, those that are most frequent and those that are rare but possibly severe or life-threatening, as well as the possibility of unforeseen complications. All elements of maximal sterile barrier technique including the use of a cap, mask, sterile gown, sterile gloves, large sterile sheet, appropriate hand hygiene, and 2% chlorhexidine for cutaneous antisepsis (or acceptable alternative antiseptic per current guidelines) were followed for this procedure. The pre-existing catheter was evaluated under fluoroscopy and found to be normal in position. The catheter was found to be obstructed. Guidewire and 5 Bulgarian MPA catheter were advanced through the pre-existing catheter. Aspiration yielded a prominent fibrinous plug. The catheter was then found to flush and aspirate. The distal aspect of the catheter appeared to remain occluded. This could not be cleared with multiple attempts. However free flow of contrast and without of the catheter was noted. Total fluoroscopy time: 4.6 min Dose area product: 46 Gycm2 The procedures performed under conscious sedation including continuous cardiopulmonary monitoring via dedicated sedation nurse. [id number]-rb-[id number] sedation time: Impression: Fibrinous material plugging in the distal aspect of the catheter, partially cleared with fluoroscopic manipulation. Correlate with catheter function.
== END 2019-01-19 11:00 | disposition home or self-care (01) ==
LOC: INTRAD 10:02
PROVIDERS: ATTEND Internal Medicine Nephrology
DX: T85.691A Other mechanical complication of intraperitoneal dialysis catheter, initial encounter (principal); Y92.89 Other specified places as the place of occurrence of the external cause; Y83.8 Other surgical procedures as the cause of abnormal reaction of the patient, or of later complication, without mention of misadventure at the time of the procedure; Z91.013 Allergy to seafood
CPT/HCPCS: 36598; C1713; C1769; 74190

== ENCOUNTER → 2019-02-26 | Day surgery (SDC) | payer BC ==
[~2019-02-26] MED LIST changes: +CIPR500T94 PO; +IV NORMAL SALINE 1000ML BAG 1,000 ML IV ONE; +PROPOFOL 20 ML IV ONE; +PROPOFOL 40 ML IV ONE
--- NOTE | 2019-02-26 16:20 | PDOC4 ---
PROCEDURE Procedure Colon/polypectomies Indication: Screening Meds: per anesthesia Findings: KIRT normal. --advanced to cecum. Prep fair. No diverticulosis. Multiple polyps from descending to sigmoid; several largest removed. One with ooze from stalk, clipped in descending. Yeni. well. IMP: Multiple polyps, multiple removed. Many left. REC: No ASA for 2 weeks. Await path. F/u with me in 2 weeks. Repeat colonoscopy 3-6 months for further polypectomies. Resume diet, other meds as before. ADRIEL CHEN MD Feb 26, 2019 16:20
[2019-02-26 16:53] VITALS: BP 152/88
--- NOTE | 2019-03-02 09:06 | PATHOLOGY ---
[facility] Accession Number: [id number] . 01 Material submitted: . PART A: colon - DESCENDING COLON POLYP. Modifiers: descending PART B: colon - SIGMOID COLON POLYP. Modifiers: sigmoid PART C: rectum - RECTAL COLON POLYP . 01 Clinical history: . Pre-OP DX: Screening colonoscopy Post-OP DX: Polyp . 02 Diagnosis: A. Colon biopsies, descending colon polyp: - Serrated adenoma. . B. Colon biopsy, sigmoid colon polyp: - Serrated adenoma. . C. Colorectal biopsies, rectal polyp: - Hyperplastic polyp. ([facility] 02/28/2019) [facility] 02/28/2019 1528 Local . 02 Comment: There is no high-grade dysplasia or evidence of malignancy. ([facility] 02/28/2019) . 02 Electronically signed: . Cesar Ambrose MD, Pathologist NPI- [id number] . 01 Gross description: . A. Received in formalin labeled "Jordan Hernandez, descending colon polyp," is a 1.6 x 1.3 x 0.9 cm polypoid piece of parks soft tissue. The margin is inked and the tissue is sectioned perpendicular to the margin and submitted entirely in cassette A1 and A2. Additionally received in the same container is a 1.5 x 1.0 x 0.7 cm polypoid piece of parks soft tissue. The margin is inked and the tissue is sectioned perpendicular to the margin and entirely submitted in cassette A3. . B. Received in formalin labeled "Jordan Hernandez, sigmoid colon polyp," is a 1.6 x 1.3 x 1.1 cm polypoid piece of parks soft tissue. The margin is inked and the tissue is sectioned perpendicular to the margin and submitted entirely in cassettes B1 and B2. . C. Received in formalin labeled "David, Jordan, rectal colon polyp," is a 0.8 x 0.5 x 0.5 cm polypoid piece of parks soft tissue. The margin is inked and the tissue is sectioned perpendicular to the margin and submitted entirely in cassette C1. Additionally received in the same container is a 1.2 x 0.5 x 0.5 cm polypoid piece of parks soft tissue. The margin is inked and the tissue is sectioned perpendicular to the margin and entirely submitted in cassette C2. ([facility]; 02/27/2019) TOB/TOB 02/27/2019 1946 Local . 02 Pathologist provided ICD-10: D12.4, D12.5, K62.1 . 02 CPT . 304989, [id number], 398249 Specimen Comment: A courtesy copy of this report has been sent to [phone], [phone] Specimen Comment: [id number] Specimen Comment: Report sent to / DR DU Performed at: 01 [facility] [address], [place] [id number] MD Pepito Santizo MD Phone: [phone] Performed at: 02 [facility] [address], [place] [id number] MD Cesar Ambrose MD Phone: [phone]
== END ==
LOC: SURG 14:17
PROVIDERS: ATTEND Internal Medicine Gastroenterology
DX: R19.7 Diarrhea, unspecified (principal); D12.4 Benign neoplasm of descending colon; D12.5 Benign neoplasm of sigmoid colon; K62.1 Rectal polyp; D64.9 Anemia, unspecified; I12.0 Hypertensive chronic kidney disease with stage 5 chronic kidney disease or end stage renal disease; N18.6 End stage renal disease; Z87.891 Personal history of nicotine dependence; Z91.013 Allergy to seafood
CPT/HCPCS: 45385; J2704

== ENCOUNTER 2019-06-12 00:49 | Emergency (ER) | payer BC ==
[~2019-06-12] VITALS: Ht 185.4 cm; Wt 110.9 kg
[~2019-06-12 00:49] MED LIST changes: -AZIT1PAC PO; -IOHEXOL 240 MG/ML 50ML VIAL. IJ ONE; -IOHEXOL 240 MG/ML 50ML VIAL. ONE; -POLY10DR EACHEYE
[2019-06-12 02:22] VITALS: BP 215/97
[2019-06-12] MEDS ORDERED: POLY10DR EACHEYE (02:45)
[2019-06-12] MEDS ORDERED: AZIT1PAC PO (02:45)
--- NOTE | 2019-06-12 02:45 | PHYS DOC ---
Past Medical History Past Medical History: Hypertension, Renal Disease, Renal Failure, Other Additional Past Medical Histor: SLEEP APNEA, aortic valve disease Past Surgical History: Other Additional Past Surgical Histo: aortic valve repair,DIALYSIS CATH L CHEST/L ABDOMEN Smoking Status: Former Smoker Alcohol Use: None Drug Use: None Adult General Chief Complaint Chief Complaint: Congestion HPI HPI 49-year-old male past medical history dialysis- (home peritoneal dialysis) and the chief complaint of cough congestion chills eye drainage since last Tuesday. Review of Systems Review of Systems Constitutional: positive fever or chills [] Eyes: Denies change in visual acuity, redness, or eye pain [] HENT: positive nasal congestion no sore throat [] Respiratory: positive cough no shortness of breath [] Cardiovascular: No additional information not addressed in HPI [] GI: Denies abdominal pain, nausea, vomiting, bloody stools or diarrhea [] : Denies dysuria or hematuria [] Musculoskeletal: Denies back pain or joint pain [positive myalgia] Integument: Denies rash or skin lesions [] Neurologic: Denies headache, focal weakness or sensory changes [] Endocrine: Denies polyuria or polydipsia [] All other systems were reviewed and found to be within normal limits, except as documented in this note. Allergies Allergies Allergies Coded Allergies Type Severity Reaction Last Updated Verified shellfish derived Allergy Severe 02/26/19 Yes Physical Exam Physical Exam Constitutional: Well developed, well nourished, no acute distress, non-toxic appearance. [] HENT: Normocephalic, atraumatic, bilateral external ears normal, oropharynx moist, no oral exudates, nose normal. [] Eyes: PERRLA, EOMI, conjunctiva normal, positive discharge. [] Neck: Normal range of motion, no tenderness, supple, no stridor. [] Cardiovascular:Heart rate regular rhythm, no murmur [] Lungs & Thorax: Bilateral breath sounds clear to auscultation [] Abdomen: Bowel sounds normal, soft, no tenderness, no masses, no pulsatile masses. [] Skin: Warm, dry, no erythema, no rash. [] Back: No tenderness, no CVA tenderness. [] Extremities: No tenderness, no cyanosis, no clubbing, ROM intact, no edema. [] Neurologic: Alert and oriented X 3, normal motor function, normal sensory function, no focal deficits noted. [] Psychologic: Affect normal, judgement normal, mood normal. [] EKG EKG [] Radiology/Procedures Radiology/Procedures [] Course & Med Decision Making Course & Med Decision Making Pertinent Labs and Imaging studies reviewed. (See chart for details) [] Dragon Disclaimer Dragon Disclaimer This electronic medical record was generated, in whole or in part, using a voice recognition dictation system. Departure Departure Impression: Primary Impression: Upper respiratory infection Additional Impression: Conjunctivitis Disposition: HOME, SELF-CARE Condition: STABLE Referrals: JEANIE DU MD (PCP) Patient Instructions: Conjunctivitis (Viral and Bacterial), Upper Respiratory Infection, Adult Scripts Azithromycin (ZITHROMAX PACKET) 1 Gm Packet 1 PACKET PO ONCE for 5 Days, #1 PACKET Zpak Take as directed Prov: ANA JIMENEZ I DO 06/12/19 Polymyxin B Sulf/Trimethoprim (POLYTRIM EYE DROPS) 10 Ml Drops 1 DROP EACHEYE Q6HRS, #10 ML Prov: ANA JIMENEZ I DO 06/12/19 Problem Qualifiers ANA JIMENEZ I DO Jun 12, 2019 02:45
== END 2019-06-12 02:22 | disposition home or self-care (01) ==
LOC: ER 00:49
DX: J06.9 Acute upper respiratory infection, unspecified (principal); H10.9 Unspecified conjunctivitis; I12.9 Hypertensive chronic kidney disease with stage 1 through stage 4 chronic kidney disease, or unspecified chronic kidney disease; N18.9 Chronic kidney disease, unspecified; Z87.891 Personal history of nicotine dependence; Z99.2 Dependence on renal dialysis; Z91.013 Allergy to seafood
CPT/HCPCS: 99283

== ENCOUNTER → 2019-06-12 | Outpatient (CLI) | payer BC ==
[~2019-06-12] VITALS: Ht 185.4 cm; Wt 110.7 kg
[~2019-06-12] MED LIST changes: +AZIT1PAC PO; +IOHEXOL 240 MG/ML 50ML VIAL. IJ ONE; +IOHEXOL 240 MG/ML 50ML VIAL. ONE; -IV NORMAL SALINE 1000ML BAG 1,000 ML IV ONE; +POLY10DR EACHEYE; -PROPOFOL 20 ML IV ONE; -PROPOFOL 40 ML IV ONE
[2019-06-12 02:22] VITALS: BP 215/97
--- NOTE | 2019-06-12 12:50 | NUR ---
Pt to IR for PD cath check. Upon arrival found to have 3 areas with ratna to abdomen. Pt states ratna from appendectomy in Feb.[address] Moran aware. Sites with healed incisions, no bleeding noted. PEDRO LUIS RN
--- NOTE | 2019-06-12 13:16 | NUR ---
Pt to [facility] for PD catheter check. Omnipaque injected and attempt to clear catheter unsuccessful. New dressing applied. MD to notify ordering MD. PEDRO LUIS MORROW
--- NOTE | 2019-06-13 09:40 | RAD ---
Fluoroscopic evaluation of peritoneal dialysis catheter 06/12/2019 INDICATION: Catheter nonfunctional Discussion: The risks and benefits the procedure were discussed the patient. Informed consent was obtained. Timeout procedure was performed. Fluoroscopic evaluation demonstrates the tip of the catheter be coiled over the pelvis, similar comparison studies. Contrast was administered through the catheter demonstrating it to be completely obstructed. With more m vigorous aspiration and flushing, some forward flushing was achieved. A wire was advanced, would not advance through the end of the catheter. A small catheter was advanced through the peritoneal dialysis catheter aspiration performed yielding minimal cavernous material. Wire was then manipulated to the catheter and multiple passes, would still not exits the catheter tip. Ultimately the obstruction could only be partially cleared. Contrast was seen to flow into the peritoneum with a partially loculated appearance. Total fluoroscopy 1.7 MIN Dose area product 17 GYCM2 IMPRESSION: Initial complete catheter obstruction. Fluoroscopic manipulation yielded only partial resolution of the obstruction; evidence of partial loculation of the catheter tip. It is uncertain whether this catheter will adequately function in its current state.
== END | disposition home or self-care (01) ==
LOC: INTRAD 12:13
PROVIDERS: ATTEND Internal Medicine Nephrology
DX: T85.898A Other specified complication of other internal prosthetic devices, implants and grafts, initial encounter (principal); I10 Essential (primary) hypertension; G47.30 Sleep apnea, unspecified; Y83.8 Other surgical procedures as the cause of abnormal reaction of the patient, or of later complication, without mention of misadventure at the time of the procedure; Y92.89 Other specified places as the place of occurrence of the external cause; Z91.013 Allergy to seafood; Z98.890 Other specified postprocedural states
CPT/HCPCS: 49400; 74190; C1713; C1769; Q9966

== ENCOUNTER 2019-06-13 14:02 | Observation (INO) | payer BC ==
[~2019-06-13] VITALS: Ht 185.4 cm; Wt 175.0 kg
[~2019-06-13 14:02] MED LIST changes: +AZIT1PAC PO; +POLY10DR EACHEYE
--- NOTE | 2019-06-13 14:56 | PHYS DOC ---
Past Medical History Past Medical History: Hypertension, Renal Disease, Renal Failure, Other Additional Past Medical Histor: SLEEP APNEA, aortic valve disease Past Surgical History: Other Additional Past Surgical Histo: aortic valve repair,DIALYSIS CATH L CHEST/L ABDOMEN Smoking Status: Former Smoker Alcohol Use: None Drug Use: None Adult General Chief Complaint Chief Complaint: DIALYSIS PROBLEM HPI HPI Patient is a 49 year old -[place] male who is on peritoneal dialysis and presents secondary to concern for his dialysis catheter not functioning x2 days. Patient states that he presented to the dialysis center and was told to come to the ER. He states that Dr. Camarena placed his dialysis catheter 2 years ago and it has not been functioning for the last 2 days. Review of Systems Review of Systems All other systems were reviewed and found to be within normal limits, except as documented in this note. Allergies Allergies Allergies Coded Allergies Type Severity Reaction Last Updated Verified shellfish derived Allergy Severe 02/26/19 Yes Physical Exam Physical Exam Constitutional: Well developed, well nourished, no acute distress, non-toxic appearance. [] HENT: Normocephalic, atraumatic, bilateral external ears normal, oropharynx moist, no oral exudates, nose normal. [] Eyes: PERRLA, EOMI, conjunctiva normal, no discharge. [] Neck: Normal range of motion, no tenderness, supple, no stridor. [] Cardiovascular:Heart rate regular rhythm, no murmur [] Lungs & Thorax: Bilateral breath sounds clear to auscultation [] Abdomen: Bowel sounds normal, soft, no tenderness, no masses, no pulsatile masses. [] Skin: Warm, dry, no erythema, no rash. [] Back: No tenderness, no CVA tenderness. [] Extremities: No tenderness, no cyanosis, no clubbing, ROM intact, no edema. [] Neurologic: Alert and oriented X 3, normal motor function, normal sensory function, no focal deficits noted. [] Psychologic: Affect normal, judgement normal, mood normal. [] Current Patient Data Vital Signs Vital Signs Date Time Temp Pulse Resp B/P (MAP) Pulse Ox O2 Delivery O2 Flow Rate FiO2 06/13/19 14:35 98.8 84 16 186/86 (119) 95 Room Air 98.8 EKG EKG [] Radiology/Procedures Radiology/Procedures [] Course & Med Decision Making Course & Med Decision Making Pertinent Labs and Imaging studies reviewed. (See chart for details) 1456: We will attempt to contact Dr. Camarena and discuss further treatment. 1522: I spoke with Dr. Camarena regarding this patient's care; at this time the patient will be admitted and will go to the OR in the morning to evaluate the peritoneal dialysis catheter. Continue home meds. Renal diet and n.p.o. at midnight. Dragon Disclaimer Dragon Disclaimer This electronic medical record was generated, in whole or in part, using a voice recognition dictation system. Departure Departure Impression: Primary Impression: Peritoneal dialysis catheter dysfunction Disposition: ADMITTED INPATIENT Admitting Physician: REMA (Dr. Camarena) Condition: STABLE Referrals: JEANIE DU MD (PCP) SARA PAIZ DO Jun 13, 2019 14:56
--- NOTE | 2019-06-13 15:25 | PDOC ---
Provider Note Provider Note SURG pt known to me from previous PD catheter placement now with two day hx of non functioning catheter admitted thru the ED for l/s repositioning in the AM OSMANI JUAN MD Jun 13, 2019 15:25
[2019-06-13 15:49] LABS: BASO % 0 % (0-3); EOS # 0.1 x10^3/uL (0.0-0.7); EOS % 1 % (0-3); HEMATOCRIT 23.8 % (39.0-53.0); HEMOGLOBIN 8.2 g/dL (13.0-17.5); LYMPH % 12 % (24-48); MEAN CORPUSCULAR HEMOGLOBIN 30 pg (25-35); MEAN CORPUSCULAR HGB CONC 34 g/dL (31-37); MEAN CORPUSCULAR VOLUME 87 fL (79-100); MONO # 1.2 x10^3/uL (0.0-1.1); MONO % 14 % (0-9); NEUT # 6.4 x10^3/uL (1.8-7.7); NEUT % 73 % (31-73); PLATELET COUNT 151 x10^3/uL (140-400); RED BLOOD COUNT 2.73 x10^6/uL (4.30-5.70); RED CELL DISTRIBUTION WIDTH 15.8 % (11.5-14.5); WHITE BLOOD COUNT 8.8 x10^3/uL (4.0-11.0)
[2019-06-13] MEDS ORDERED: AZITHROMYCIN 250 MG TABLET. PO ONE (16:00)
[2019-06-13 16:07] LABS: CALCIUM 8.2 mg/dL (8.5-10.1); CREATININE 18.6 mg/dL (0.7-1.3); GFR 3.3; POTASSIUM 5.3 mmol/L (3.5-5.1)
[2019-06-13 16:24] VITALS: BP 200/108
[2019-06-13] MEDS: POLYMYXIN/TRIMETHOPRIM OPHTH SOLUTION 10ML BOTTLE. OU SCH (16:47)
[2019-06-13] MEDS: CARVEDILOL 6.25 MG TABLET. PO SCH (16:49)
[2019-06-13 18:13] VITALS: BP 149/83
[2019-06-13 19:54] VITALS: BP 163/90
[2019-06-13] MEDS ORDERED: ATORVASTATIN CALCIUM 40 MG TABLET. PO SCH (21:00)
[2019-06-13 22:53] VITALS: BP 173/90
[2019-06-14] MEDS: POLYMYXIN/TRIMETHOPRIM OPHTH SOLUTION 10ML BOTTLE. OU SCH ×4 (00:18→16:06)
[2019-06-14 03:00] VITALS: BP 169/90
[2019-06-14] MEDS ORDERED: MORPHINE SULFATE 2 MG/ML VIAL. IV PRN ×2 (07:00→08:00)
[2019-06-14] MEDS ORDERED: fentaNYL PF VIAL 100 MCG/2 ML VIAL IV PRN ×4 (07:00→08:00)
[2019-06-14] MEDS ORDERED: PROCHLORPERAZINE 10 MG/2 ML VIAL. IV PRN ×2 (07:00→08:00)
[2019-06-14] MEDS ORDERED: HYDROmorphone 2 MG/ML VIAL IV PRN ×2 (07:00→08:00)
[2019-06-14] MEDS ORDERED: IV RINGERS,LACTATED 1000ML 1,000 ML IV SCH (07:00)
[2019-06-14] MEDS ORDERED: PANTOPRAZOLE 40 MG TABLET.DR. PO SCH (07:30)
[2019-06-14] MEDS: LOSARTAN POTASSIUM 25 MG TABLET. PO SCH ×2 (07:39→10:58)
[2019-06-14] MEDS: CARVEDILOL 6.25 MG TABLET. PO SCH ×2 (07:39→16:05)
[2019-06-14] MEDS: FUROSEMIDE 20 MG TABLET PO SCH ×2 (07:40→10:57)
[2019-06-14] MEDS ORDERED: fentaNYL PF VIAL 100 MCG/2 ML VIAL ONE (07:43)
[2019-06-14] MEDS ORDERED: DEXAMETHASONE SOD PHOS 4 MG/ML VIAL ONE (07:43)
[2019-06-14] MEDS ORDERED: ETOMIDATE 20 MG/10 ML VIAL. IV ONE (07:43)
[2019-06-14] MEDS ORDERED: SUCCINYLCHOLINE 200 MG/10 ML VIAL. ONE (07:43)
[2019-06-14] MEDS ORDERED: LIDOCAINE 2% PF 5 ML VIAL. ONE (07:43)
[2019-06-14] MEDS ORDERED: ROCURONIUM 50 MG/5 ML VIAL. ONE (07:43)
[2019-06-14] MEDS ORDERED: ONDANSETRON PF 4 MG/2 ML VIAL. ONE (07:43)
[2019-06-14] MEDS ORDERED: FAMOTIDINE 20 MG/2 ML VIAL ONE (07:43)
[2019-06-14] MEDS ORDERED: ASPIRIN ENTERIC COATED 325 MG TABLET.DR. PO SCH (08:00)
[2019-06-14] MEDS ORDERED: IV NORMAL SALINE 1000ML BAG 1,000 ML IV SCH (08:00)
[2019-06-14] MEDS ORDERED: BUPIVACAINE-EPI 0.5%-1:200000 MPF 30 ML VIAL. ONE (08:05)
[2019-06-14] MEDS ORDERED: HEPARIN SODIUM 5,000 UNIT in IV NORMAL SALINE 500ML BAG 500 ML IRR ONE (08:15)
[2019-06-14] MEDS ORDERED: GLYCOPYRROLATE 1 MG/5 ML VIAL. ONE (08:44)
--- NOTE | 2019-06-14 08:51 | PDOC1 ---
History and Physical Date of Admission Date of Admission DATE: 06/14/19 TIME: 08:45 Identification/Chief Complaint Chief Complaint malfunctioning PD catheter Source Source: Chart review, Patient History of Present Illness History of Present Illness Jordan is a 49 yo with ESRD whose PD cath was working til three days ago. He's brought for l/s repositioning/replacement Past Medical History Cardiovascular: CAD, HTN, Other Renal/: Chronic renal failure Past Surgical History Past Surgical History: CABG, Other Family History Family History: No Significant, Hypertension, Kidney Disease, Other Social History ALCOHOL: none Drugs: None Current Problem List Problem List Problems Medical Problems: (1) Peritoneal dialysis catheter dysfunction Status: Acute Current Medications Current Medications Current Medications Cefazolin Sodium/ Dextrose 50 ml @ 100 mls/hr 1X ONCE IV ; Start 06/14/19 at 08:00; Stop 06/14/19 at 08:29; Status DC Amlodipine Besylate (Norvasc) 10 mg DAILYBFRLUN PO ; Start 06/14/19 at 11:30 Aspirin (Ecotrin) 325 mg DAILYWBKFT PO ; Start 06/14/19 at 08:00 Atorvastatin Calcium (Lipitor) 40 mg QHS PO Last administered on 06/13/19at 20:52; Start 06/13/19 at 21:00 Carvedilol (Coreg) 12.5 mg BIDWMEALS PO Last administered on 06/14/19at 07:39; Start 06/13/19 at 17:00 Furosemide (Lasix) 20 mg DAILY PO ; Start 06/14/19 at 09:00 Losartan Potassium (Cozaar) 50 mg DAILY PO ; Start 06/14/19 at 09:00 Polymyxin/ Trimethoprim Sulfate (Polytrim) 1 drop Q6HRS OU Last administered on 06/14/19at 06:31; Start 06/13/19 at 18:00 Azithromycin (Zithromax) 1,000 mg 1X ONCE PO Last administered on 06/13/19at 16:26; Start 06/13/19 at 16:00; Stop 06/13/19 at 16:01; Status DC Vitamin B Complex/ Vitamin C (Robyn-Bharat) 1 tab DAILY PO ; Start 06/14/19 at 09:00 Pantoprazole Sodium (Protonix) 40 mg DAILYAC PO ; Start 06/14/19 at 07:30 Fentanyl Citrate (Fentanyl 2ml Vial) 25 mcg PRN Q5MIN PRN IV MILD PAIN 1-3; Start 06/14/19 at 07:00; Stop 06/14/19 at 07:07; Status DC Fentanyl Citrate (Fentanyl 2ml Vial) 50 mcg PRN Q5MIN PRN IV MODERATE TO SEVERE PAIN; Start 06/14/19 at 07:00; Stop 06/14/19 at 07:07; Status DC Morphine Sulfate (Morphine Sulfate) 1 mg PRN Q10MIN PRN IV SEVERE PAIN 7-10; Start 06/14/19 at 07:00; Stop 06/14/19 at 07:07; Status DC Ringer's Solution 1,000 ml @ 30 mls/hr Q24H IV ; Start 06/14/19 at 07:00; Stop 06/14/19 at 07:07; Status DC Hydromorphone HCl (Dilaudid) 0.5 mg PRN Q10MIN PRN IV SEV PAIN, Second choice; Start 06/14/19 at 07:00; Stop 06/14/19 at 07:08; Status DC Prochlorperazine Edisylate (Compazine) 5 mg PACU PRN PRN IV NAUSEA, MRX1; S tart 06/14/19 at 07:00; Stop 06/14/19 at 07:08; Status DC Famotidine (Pepcid Vial) 20 mg STK-MED ONCE .ROUTE ; Start 06/14/19 at 07:43; Stop 06/14/19 at 07:44; Status DC Lidocaine HCl (Lidocaine Pf 2% Vial) 5 ml STK-MED ONCE .ROUTE ; Start 06/14/19 at 07:43; Stop 06/14/19 at 07:44; Status DC Ondansetron HCl (Zofran) 4 mg STK-MED ONCE .ROUTE ; Start 06/14/19 at 07:43; Stop 06/14/19 at 07:44; Status DC Etomidate (Amidate) 20 mg STK-MED ONCE IV ; Start 06/14/19 at 07:43; Stop 06/14/19 at 07:44; Status DC Dexamethasone Sodium Phosphate (Decadron) 4 mg STK-MED ONCE .ROUTE ; Start 06/14/19 at 07:43; Stop 06/14/19 at 07:44; Status DC Succinylcholine Chloride (Anectine) 200 mg STK-MED ONCE .ROUTE ; Start 06/14/19 at 07:43; Stop 06/14/19 at 07:44; Status DC Rocuronium [place] (Zemuron) 50 mg STK-MED ONCE .ROUTE ; Start 06/14/19 at 07:43; Stop 06/14/19 at 07:44; Status DC Fentanyl Citrate (Fentanyl 2ml Vial) 100 mcg STK-MED ONCE .ROUTE ; Start 06/14/19 at 07:43; Stop 06/14/19 at 07:44; Status DC Fentanyl Citrate (Fentanyl 2ml Vial) 25 mcg PRN Q5MIN PRN IV MILD PAIN 1-3; Start 06/14/19 at 08:00; Stop 06/14/19 at 12:00 Fentanyl Citrate (Fentanyl 2ml Vial) 50 mcg PRN Q5MIN PRN IV MODERATE TO SEVERE PAIN; Start 06/14/19 at 08:00; Stop 06/14/19 at 12:00 Morphine Sulfate (Morphine Sulfate) 1 mg PRN Q10MIN PRN IV SEVERE PAIN 7-10; Start 06/14/19 at 08:00; Stop 06/14/19 at 12:00 Hydromorphone HCl (Dilaudid) 0.5 mg PRN Q10MIN PRN IV SEV PAIN, Second choice; Start 06/14/19 at 08:00; Stop 06/14/19 at 12:00 Prochlorperazine Edisylate (Compazine) 5 mg PACU PRN PRN IV NAUSEA, MRX1; Start 06/14/19 at 08:00; Stop 06/14/19 at 12:00 Sodium Chloride 1,000 ml @ 0 mls/hr Q0M IV ; Start 06/14/19 at 08:00 Bupivacaine HCl/ Epinephrine Bitart (Sensorcain-Epi 0.5%-1:045130 Mpf) 30 ml STK-MED ONCE .ROUTE ; Start 06/14/19 at 08:05; Stop 06/14/19 at 08:06; Status DC Heparin Sodium (Porcine) 5000 unit/Sodium Chloride 505 ml @ 505 mls/hr 1X ONCE IRR ; Start 06/14/19 at 08:15; Stop 06/14/19 at 09:14 Glycopyrrolate (Robinul) 1 mg STK-MED ONCE .ROUTE ; Start 06/14/19 at 08:44; Stop 06/14/19 at 08:44; Status DC Active Scripts Active Zithromax Packet (Azithromycin) 1 Gm Packet 1 Packet PO ONCE 5 Days Zpak Take as directed Polytrim Eye Drops (Polymyxin B Sulf/Trimethoprim) 10 Ml Drops 1 Drop EACHEYE Q6HRS [Pantoprazole] 40 MG Tablet. 40 Mg PO DAILYAC Aspirin Ec (Aspirin) 325 Mg Tablet.dr 325 Mg PO DAILYWBKFT Amlodipine Besylate 10 Mg Tablet 10 Mg PO DAILYBFRLUN Atorvastatin Calcium 40 Mg Tablet 40 Mg PO QHS Reported Carvedilol (Carvedilol) 6.25 Mg Tablet 12.5 Mg PO BIDWMEALS Robyn-Bharat Rx Tablet (Vit B Cmplx 3/Fa/Vit C/Biotin) 1 Each Tablet 1 Each PO DAILY Furosemide 20 Mg Tablet 20 Mg PO DAILY Cozaar (Losartan Potassium) 50 Mg Tablet 50 Mg PO DAILY Allergies Allergies: Coded Allergies: shellfish derived (Verified Allergy, Severe, 02/26/19) ROS Review of System negative except present complaints, noteably denies abdominal pain/nausea/vomiting Physical Exam General: Oriented X3, No acute distress HEENT: Atraumatic Lungs: Normal air movement Heart: RRR Abdomen: Soft, No tenderness Vitals Vitals Vital Signs Date Time Temp Pulse Resp B/P (MAP) Pulse Ox O2 Delivery O2 Flow Rate FiO2 06/14/19 08:00 Room Air 06/14/19 07:51 98.0 83 22 198/94 94 98.0 Labs Labs Laboratory Tests Test 06/13/19 15:38 White Blood Count 8.8 x10^3/uL (4.0-11.0) Red Blood Count 2.73 x10^6/uL (4.30-5.70) Hemoglobin 8.2 g/dL (13.0-17.5) Hematocrit 23.8 % (39.0-53.0) Mean Corpuscular Volume 87 fL (79-100) Mean Corpuscular Hemoglobin 30 pg (25-35) Mean Corpuscular Hemoglobin Concent 34 g/dL (31-37) Red Cell Distribution Width 15.8 % (11.5-14.5) Platelet Count 151 x10^3/uL (140-400) Neutrophils (%) (Auto) 73 % (31-73) Lymphocytes (%) (Auto) 12 % (24-48) Monocytes (%) (Auto) 14 % (0-9) Eosinophils (%) (Auto) 1 % (0-3) Basophils (%) (Auto) 0 % (0-3) Neutrophils # (Auto) 6.4 x10^3/uL (1.8-7.7) Lymphocytes # (Auto) 1.0 x10^3/uL (1.0-4.8) Monocytes # (Auto) 1.2 x10^3/uL (0.0-1.1) Eosinophils # (Auto) 0.1 x10^3/uL (0.0-0.7) Basophils # (Auto) 0.0 x10^3/uL (0.0-0.2) Sodium Level 142 mmol/L (136-145) Potassium Level 5.3 mmol/L (3.5-5.1) Chloride Level 106 mmol/L (98-107) Carbon Dioxide Level 26 mmol/L (21-32) Anion Gap 10 (6-14) Blood Urea Nitrogen 126 mg/dL (8-26) Creatinine 18.6 mg/dL (0.7-1.3) Estimated GFR (Cockcroft-Gault) 3.3 Glucose Level 83 mg/dL (70-99) Calcium Level 8.2 mg/dL (8.5-10.1) Laboratory Tests Test 06/13/19 15:38 White Blood Count 8.8 x10^3/uL (4.0-11.0) Red Blood Count 2.73 x10^6/uL (4.30-5.70) Hemoglobin 8.2 g/dL (13.0-17.5) Hematocrit 23.8 % (39.0-53.0) Mean Corpuscular Volume 87 fL (79-100) Mean Corpuscular Hemoglobin 30 pg (25-35) Mean Corpuscular Hemoglobin Concent 34 g/dL (31-37) Red Cell Distribution Width 15.8 % (11.5-14.5) Platelet Count 151 x10^3/uL (140-400) Neutrophils (%) (Auto) 73 % (31-73) Lymphocytes (%) (Auto) 12 % (24-48) Monocytes (%) (Auto) 14 % (0-9) Eosinophils (%) (Auto) 1 % (0-3) Basophils (%) (Auto) 0 % (0-3) Neutrophils # (Auto) 6.4 x10^3/uL (1.8-7.7) Lymphocytes # (Auto) 1.0 x10^3/uL (1.0-4.8) Monocytes # (Auto) 1.2 x10^3/uL (0.0-1.1) Eosinophils # (Auto) 0.1 x10^3/uL (0.0-0.7) Basophils # (Auto) 0.0 x10^3/uL (0.0-0.2) Sodium Level 142 mmol/L (136-145) Potassium Level 5.3 mmol/L (3.5-5.1) Chloride Level 106 mmol/L (98-107) Carbon Dioxide Level 26 mmol/L (21-32) Anion Gap 10 (6-14) Blood Urea Nitrogen 126 mg/dL (8-26) Creatinine 18.6 mg/dL (0.7-1.3) Estimated GFR (Cockcroft-Gault) 3.3 Glucose Level 83 mg/dL (70-99) Calcium Level 8.2 mg/dL (8.5-10.1) VTE Prophylaxis Ordered VTE Prophylaxis Devices: Yes VTE Pharmacological Prophylaxi: No Assessment/Plan Assessment/Plan malfunctioning PD catheter explained risks including but not limited to bleeding, infection,injury to surrounding structures, possible need for new catheter he will proceed OSMANI JUAN MD Jun 14, 2019 08:51
[2019-06-14] MEDS ORDERED: 0.9 % SODIUM CHLORIDE 20 ML VIAL. IJ ONE (08:55)
[2019-06-14] MEDS ORDERED: ceFAZolin SODIUM IV Push 1 GM VIAL. IVP ONE (08:55)
[2019-06-14] MEDS ORDERED: FOLIC/VIT B COMP W-C (RENAL) TABLET. PO SCH (09:00)
--- NOTE | 2019-06-14 09:06 | NUR ---
SW following. Discussed with RN, pt from home alone. Pt down for a possible PD catheter replacement this morning. SW will continue to follow.
[2019-06-14] MEDS ORDERED: NEOSTIGMINE METHYLSULFATE 5 MG/5 ML SYRINGE. ONE (09:28)
[2019-06-14] MEDS ORDERED: DESFLURANE 61 TO 120 MINUTES IH ONE (09:42)
--- NOTE | 2019-06-14 09:55 | PDOC ---
BRIEF OPERATIVE NOTE Date: Jun 14, 2019 Pre-Op Diagnosis malfunctioning PD catheter Post-Op Diagnosis same Procedure Performed repositioning, removal pig tail clot Surgeon Migue Anesthesia Type: General Blood Loss 5cc IV Fluid 150cc Specimens Obtained epiploic appendage pig tail clot Findings fibrinous clot in pig tail of catheter Complications none OSMANI JUAN MD Jun 14, 2019 09:55
[2019-06-14] MEDS ORDERED: oxyCODONE/APAP 7.5/325 1 TAB TABLET PO PRN (10:00)
[2019-06-14 11:00] VITALS: BP 187/95
[2019-06-14] MEDS ORDERED: amLODIPine BESYLATE 10 MG TABLET PO SCH (11:30)
--- NOTE | 2019-06-14 11:43 | OP ---
DATE OF SURGERY: 06/14/2019 PREOPERATIVE DIAGNOSIS: Malfunctioning peritoneal dialysis catheter. POSTOPERATIVE DIAGNOSIS: Malfunctioning peritoneal dialysis catheter. PROCEDURE: Repositioning of catheter, removal of pigtail clot. SURGEON: Maury Juan MD. RAIL TRANSPORTATION OPERATOR: None. ANESTHESIA: General endotracheal. BLOOD LOSS: 5 mL. INTRAVENOUS FLUIDS: 150 mL. INDICATIONS: The patient is a 49-year-old with a PD catheter that is currently not functioning properly, brought for exploration. OPERATIVE FINDINGS: The abdomen was free of adhesions, bowel appeared normal, the pigtail catheter was encircled by what appeared to be an epiploic appendage and contained a fibrinous clot in the pigtail. DESCRIPTION OF PROCEDURE: The patient brought to the operating suite, given a general endotracheal anesthetic. Abdomen prepped and draped in usual sterile fashion. An epigastric incision was infiltrated with local anesthetic, incised and a 5 mm Visiport used to safely gain access into the abdominal cavity, taking care to avoid injury to abdominal contents. Pneumoperitoneum established. Camera inserted. Inspection carried out as above. A suprapubic port site was used for a second port placed under direct vision and a left lower quadrant port site was used as well. The fatty tissue encircling the catheter was carefully resected with the LigaSure, avoiding injury to the adjacent bowel. The catheter was then externalized and the pigtail cleared of the fibrinous clot. It was then returned to the abdomen. Abdomen decompressed, ports removed. Skin incisions closed with subcuticular 4-0 Monocryl. Steri-Strips and sterile dressing applied. Prior to closure, the catheter was "packed" with heparinized saline. MAURY JUAN MD DR: FRANK/mima JOB#: [id number] / [id number] KITTY Dominguez MD
--- NOTE | 2019-06-14 11:53 | PDOC2 ---
CONSULT Date of Consult Date of Consult DATE: 06/14/19 TIME: 11:45 Reason for Consult Reason for Consult: ESRD Referring Physician Referring Physician: DRAKE Identification/Chief Complaint Chief Complaint NON FUNCTIONING PD CATHETER Source Source: Chart review, Patient History of Present Illness Reason for Visit: THIS IS A 49 YR OLD PT WITH ESRD DUE TO HTN. HAS BEEN ON PD. PD CATHETER STOPPED WORKING LAST WEEK. PT WAS SEEN BY IR TO SEE IF ANY CLOTS OR FIBRIN COULD BE REMOVED TO GET IT TO FUNCTION PROPERLY. CASE D/W IR AND THIS WAS NOT FEASIBLE. PT THEN SAW DR JUAN AND THIS AM HE HAS HAD REPOSITIONING OF HIS PD CATHETER AND PIGTAIL CLOT REMOVAL. LABS ARE C/W HIS ESRD Past Medical History Cardiovascular: CAD, HTN, Other Renal/: Chronic renal failure Past Surgical History Past Surgical History: CABG, Other (PD CATHETER) Family History Family History: No Significant, Hypertension, Kidney Disease, Other Social History ALCOHOL: none Drugs: None Lives: with Family Current Problem List Problem List Problems Medical Problems: (1) Peritoneal dialysis catheter dysfunction Status: Acute Current Medications Current Medications Current Medications Cefazolin Sodium/ Dextrose 50 ml @ 100 mls/hr 1X ONCE IV Last administered on 06/14/19at 08:57; Start 06/14/19 at 08:00; Stop 06/14/19 at 08:29; Status DC Amlodipine Besylate (Norvasc) 10 mg DAILYBFRLUN PO Last administered on 06/14/19at 10:58; Start 06/14/19 at 11:30 Aspirin (Ecotrin) 325 mg DAILYWBKFT PO ; Start 06/14/19 at 08:00 Atorvastatin Calcium (Lipitor) 40 mg QHS PO Last administered on 06/13/19at 20:52; Start 06/13/19 at 21:00 Carvedilol (Coreg) 12.5 mg BIDWMEALS PO Last administered on 06/14/19at 07:39; Start 06/13/19 at 17:00 Furosemide (Lasix) 20 mg DAILY PO Last administered on 06/14/19at 10:57; Start 06/14/19 at 09:00 Losartan Potassium (Cozaar) 50 mg DAILY PO Last administered on 06/14/19at 10:58; Start 06/14/19 at 09:00 Polymyxin/ Trimethoprim Sulfate (Polytrim) 1 drop Q6HRS OU Last administered on 06/14/19at 10:58; Start 06/13/19 at 18:00 Azithromycin (Zithromax) 1,000 mg 1X ONCE PO Last administered on 06/13/19at 16:26; Start 06/13/19 at 16:00; Stop 06/13/19 at 16:01; Status DC Vitamin B Complex/ Vitamin C (Robyn-Bharat) 1 tab DAILY PO ; Start 06/14/19 at 09:00 Pantoprazole Sodium (Protonix) 40 mg DAILYAC PO ; Start 06/14/19 at 07:30 Fentanyl Citrate (Fentanyl 2ml Vial) 25 mcg PRN Q5MIN PRN IV MILD PAIN 1-3; Start 06/14/19 at 07:00; Stop 06/14/19 at 07:07; Status DC Fentanyl Citrate (Fentanyl 2ml Vial) 50 mcg PRN Q5MIN PRN IV MODERATE TO SEVERE PAIN; Start 06/14/19 at 07:00; Stop 06/14/19 at 07:07; Status DC Morphine Sulfate (Morphine Sulfate) 1 mg PRN Q10MIN PRN IV SEVERE PAIN 7-10; Start 06/14/19 at 07:00; Stop 06/14/19 at 07:07; Status DC Ringer's Solution 1,000 ml @ 30 mls/hr Q24H IV ; Start 06/14/19 at 07:00; Stop 06/14/19 at 07:07; Status DC Hydromorphone HCl (Dilaudid) 0.5 mg PRN Q10MIN PRN IV SEV PAIN, Second choice; Start 06/14/19 at 07:00; Stop 06/14/19 at 07:08; Status DC Prochlorperazine Edisylate (Compazine) 5 mg PACU PRN PRN IV NAUSEA, MRX1; Start 06/14/19 at 07:00; Stop 06/14/19 at 07:08; Status DC Famotidine (Pepcid Vial) 20 mg STK-MED ONCE .ROUTE ; Start 06/14/19 at 07:43; Stop 06/14/19 at 07:44; Status DC Lidocaine HCl (Lidocaine Pf 2% Vial) 5 ml STK-MED ONCE .ROUTE ; Start 06/14/19 at 07:43; Stop 06/14/19 at 07:44; Status DC Ondansetron HCl (Zofran) 4 mg STK-MED ONCE .ROUTE ; Start 06/14/19 at 07:43; Stop 06/14/19 at 07:44; Status DC Etomidate (Amidate) 20 mg STK-MED ONCE IV ; Start 06/14/19 at 07:43; Stop 06/14/19 at 07:44; Status DC Dexamethasone Sodium Phosphate (Decadron) 4 mg STK-MED ONCE .ROUTE ; Start 06/14/19 at 07:43; Stop 06/14/19 at 07:44; Status DC Succinylcholine Chloride (Anectine) 200 mg STK-MED ONCE .ROUTE ; Start 06/14/19 at 07:43; Stop 06/14/19 at 07:44; Status DC Rocuronium [place] (Zemuron) 50 mg STK-MED ONCE .ROUTE ; Start 06/14/19 at 07:43; Stop 06/14/19 at 07:44; Status DC Fentanyl Citrate (Fentanyl 2ml Vial) 100 mcg STK-MED ONCE .ROUTE ; Start 03/23 at 07:43; Stop 06/14/19 at 07:44; Status DC Fentanyl Citrate (Fentanyl 2ml Vial) 25 mcg PRN Q5MIN PRN IV MILD PAIN 1-3; Start 06/14/19 at 08:00; Stop 06/14/19 at 12:00 Fentanyl Citrate (Fentanyl 2ml Vial) 50 mcg PRN Q5MIN PRN IV MODERATE TO SEVERE PAIN; Start 06/14/19 at 08:00; Stop 06/14/19 at 12:00 Morphine Sulfate (Morphine Sulfate) 1 mg PRN Q10MIN PRN IV SEVERE PAIN 7-10; Start 06/14/19 at 08:00; Stop 06/14/19 at 12:00 Hydromorphone HCl (Dilaudid) 0.5 mg PRN Q10MIN PRN IV SEV PAIN, Second choice; Start 06/14/19 at 08:00; Stop 06/14/19 at 12:00 Prochlorperazine Edisylate (Compazine) 5 mg PACU PRN PRN IV NAUSEA, MRX1; Start 06/14/19 at 08:00; Stop 06/14/19 at 12:00 Sodium Chloride 1,000 ml @ 0 mls/hr Q0M IV ; Start 06/14/19 at 08:00 Bupivacaine HCl/ Epinephrine Bitart (Sensorcain-Epi 0.5%-1:907017 Mpf) 30 ml STK-MED ONCE .ROUTE Last administered on 06/14/19at 09:01; Start 06/14/19 at 08:05; Stop 06/14/19 at 08:06; Status DC Heparin Sodium (Porcine) 5000 unit/Sodium Chloride 505 ml @ 505 mls/hr 1X ONCE IRR Last administered on 06/14/19at 09:01; Start 06/14/19 at 08:15; Stop 06/14/19 at 09:14; Status DC Glycopyrrolate (Robinul) 1 mg STK-MED ONCE .ROUTE ; Start 06/14/19 at 08:44; Stop 06/14/19 at 08:44; Status DC Cefazolin Sodium (Ancef) 1 gm STK-MED ONCE IVP ; Start 06/14/19 at 08:55; Stop 06/14/19 at 08:55; Status DC Sodium Chloride (SODIUM CHLORIDE 20ml) 20 ml STK-MED ONCE IJ ; Start 06/14/19 at 08:55; Stop 06/14/19 at 08:55; Status DC Neostigmine [place] (Neostigmine Methylsulfate) 5 mg STK-MED ONCE .ROUTE ; Start 06/14/19 at 09:28; Stop 06/14/19 at 09:28; Status DC Desflurane (Suprane) 60 ml STK-MED ONCE IH ; Start 06/14/19 at 09:42; Stop 06/14/19 at 09:42; Status DC Oxycodone/ Acetaminophen (Percocet 7.5/ 325) 1 tab PRN Q4HRS PRN PO PAIN; Start 06/14/19 at 10:00 Active Scripts Active Zithromax Packet (Azithromycin) 1 Gm Packet 1 Packet PO ONCE 5 Days Zpak Take as directed Polytrim Eye Drops (Polymyxin B Sulf/Trimethoprim) 10 Ml Drops 1 Drop EACHEYE Q6HRS [Pantoprazole] 40 MG Tablet. 40 Mg PO DAILYAC Aspirin Ec (Aspirin) 325 Mg Tablet. 325 Mg PO DAILYWBKFT Amlodipine Besylate 10 Mg Tablet 10 Mg PO DAILYBFRLUN Atorvastatin Calcium 40 Mg Tablet 40 Mg PO QHS Reported Carvedilol (Carvedilol) 6.25 Mg Tablet 12.5 Mg PO BIDWMEALS Robyn-Bharat Rx Tablet (Vit B Cmplx 3/Fa/Vit C/Biotin) 1 Each Tablet 1 Each PO DAILY Furosemide 20 Mg Tablet 20 Mg PO DAILY Cozaar (Losartan Potassium) 50 Mg Tablet 50 Mg PO DAILY Allergies Allergies: Coded Allergies: shellfish derived (Verified Allergy, Severe, 02/26/19) ROS General: YES: Fatigue, Malaise PSYCHOLOGICAL ROS: YES: Anxiety Eyes: Yes Decreased vision HEENT: YES: Heacaches Respiratory: YES: Cough Gastrointestinal: Yes Nausea Genitourinary: YES Other (ANURIA) Musculoskeletal: Yes Muscular Weakness Neurological: Yes Weakness Skin: Yes Dry Skin Physical Exam General: Alert, Oriented X3, Cooperative, mild distress HEENT: Atraumatic Lungs: Clear to auscultation Heart: Regular rate Abdomen: Normal bowel sounds, No tenderness Extremities: No clubbing Skin: No breakdown Neuro: Sensation intact Psych/Mental Status: Mental status NL, Mood NL MUSCULOSKELETAL: No joint tenderness, No deformity, No swelling Vitals VITALS Vital Signs Date Time Temp Pulse Resp B/P (MAP) Pulse Ox O2 Delivery O2 Flow Rate FiO2 06/14/19 11:00 98.1 66 16 187/95 (125) 99 Room Air 98.1 06/14/19 09:59 10 Labs Labs Laboratory Tests Test 06/13/19 15:38 White Blood Count 8.8 x10^3/uL (4.0-11.0) Red Blood Count 2.73 x10^6/uL (4.30-5.70) Hemoglobin 8.2 g/dL (13.0-17.5) Hematocrit 23.8 % (39.0-53.0) Mean Corpuscular Volume 87 fL (79-100) Mean Corpuscular Hemoglobin 30 pg (25-35) Mean Corpuscular Hemoglobin Concent 34 g/dL (31-37) Red Cell Distribution Width 15.8 % (11.5-14.5) Platelet Count 151 x10^3/uL (140-400) Neutrophils (%) (Auto) 73 % (31-73) Lymphocytes (%) (Auto) 12 % (24-48) Monocytes (%) (Auto) 14 % (0-9) Eosinophils (%) (Auto) 1 % (0-3) Basophils (%) (Auto) 0 % (0-3) Neutrophils # (Auto) 6.4 x10^3/uL (1.8-7.7) Lymphocytes # (Auto) 1.0 x10^3/uL (1.0-4.8) Monocytes # (Auto) 1.2 x10^3/uL (0.0-1.1) Eosinophils # (Auto) 0.1 x10^3/uL (0.0-0.7) Basophils # (Auto) 0.0 x10^3/uL (0.0-0.2) Sodium Level 142 mmol/L (136-145) Potassium Level 5.3 mmol/L (3.5-5.1) Chloride Level 106 mmol/L (98-107) Carbon Dioxide Level 26 mmol/L (21-32) Anion Gap 10 (6-14) Blood Urea Nitrogen 126 mg/dL (8-26) Creatinine 18.6 mg/dL (0.7-1.3) Estimated GFR (Cockcroft-Gault) 3.3 Glucose Level 83 mg/dL (70-99) Calcium Level 8.2 mg/dL (8.5-10.1) Laboratory Tests Test 06/13/19 15:38 White Blood Count 8.8 x10^3/uL (4.0-11.0) Red Blood Count 2.73 x10^6/uL (4.30-5.70) Hemoglobin 8.2 g/dL (13.0-17.5) Hematocrit 23.8 % (39.0-53.0) Mean Corpuscular Volume 87 fL (79-100) Mean Corpuscular Hemoglobin 30 pg (25-35) Mean Corpuscular Hemoglobin Concent 34 g/dL (31-37) Red Cell Distribution Width 15.8 % (11.5-14.5) Platelet Count 151 x10^3/uL (140-400) Neutrophils (%) (Auto) 73 % (31-73) Lymphocytes (%) (Auto) 12 % (24-48) Monocytes (%) (Auto) 14 % (0-9) Eosinophils (%) (Auto) 1 % (0-3) Basophils (%) (Auto) 0 % (0-3) Neutrophils # (Auto) 6.4 x10^3/uL (1.8-7.7) Lymphocytes # (Auto) 1.0 x10^3/uL (1.0-4.8) Monocytes # (Auto) 1.2 x10^3/uL (0.0-1.1) Eosinophils # (Auto) 0.1 x10^3/uL (0.0-0.7) Basophils # (Auto) 0.0 x10^3/uL (0.0-0.2) Sodium Level 142 mmol/L (136-145) Potassium Level 5.3 mmol/L (3.5-5.1) Chloride Level 106 mmol/L (98-107) Carbon Dioxide Level 26 mmol/L (21-32) Anion Gap 10 (6-14) Blood Urea Nitrogen 126 mg/dL (8-26) Creatinine 18.6 mg/dL (0.7-1.3) Estimated GFR (Cockcroft-Gault) 3.3 Glucose Level 83 mg/dL (70-99) Calcium Level 8.2 mg/dL (8.5-10.1) Assessment/Plan Assessment/Plan IMP ESRD ANEMIA HTN HYPERKALEMIA MALFUNCTIONING PD CATHETER S/P REPOSITION OF PD CATHETER AND PIGTAIL CLOT/FIBRIN REMOVAL PLAN ARANESP WILL HAVE PD CATHETER FLUSHED TODAY IF IT FLUSHES AND DRAINS WELL PT CAN GO HOME AND DO APD TONIGHT CASE D/W KITTY GLASGOW MD Jun 14, 2019 11:53
[2019-06-14] MEDS ORDERED: OXYC1TAB19 PO ×2 (13:13→16:16)
--- NOTE | 2019-06-14 13:17 | DISCH ---
DISCHARGE INSTRUCTIONS Condition on Discharge Condition on Discharge: Stable Activity After Discharge Activity Instructions for Disc: Resume previous activity, Other, see below Lifting Instructions after Dis: No heavy lifting, No pulling or pushing Exercise Instruction after Dis: Progress as tolerated Driving Instructions after Dis: Do not drive today Weight Bearing Status after Di: As tolerated Diet after Discharge Diet after Discharge: Cardiac, Renal Dialysis Diet Texture: Regular Wound Incision Care Wound/Incision Care: Keep wound/cast CDI, Change dressing, May get incision wet Checks after Discharge Checks after discharge: Weigh Yourself Daily Contacting the [facility] after DC Call your doctor for: Concerns you may have Follow-Up Follow up with: Dr Camarena [phone], call to schedule 1 week Follow Up With: Ok to continue Low volume PD REJI REYES APRN Jun 14, 2019 13:17
[2019-06-14 15:04] VITALS: BP 172/98
[2019-06-14 16:05] VITALS: BP 172/98
--- NOTE | 2019-06-14 18:05 | NUR ---
Discharge Note: LIANA VIRK Discharge instructions and discharge home medications reviewed with Patient and a copy given. All questions have been answered and understanding verbalized. Patient discharge sign sheet would not print, patient understand all of my instructions and voiced understanding. The following instructions and handouts were given: information about medications, follow up appointments, incisional instructions, etc. Discontinued lines and drains: IV line in right forearm removed, catheter tip intact. Patient discharged to home with self care with friend, patient ambulated to discharge vehicle.
[2019-06-14] MEDS ORDERED: DARBEPOETIN ALFA 60 MCG/0.3 ML DISP.SYRIN. SQ ONE (21:00)
--- NOTE | 2019-06-15 17:06 | PATHOLOGY ---
[facility] Accession Number: [id number] . 01 Material submitted: . PART A: colon - EPIPLOIC APPENDAGE PART B: colon - PIGTAIL CLOT . 01 Clinical history: . Malfunctioning PD cath. . 02 Diagnosis: A. Segments of fibroadipose tissue, epiploic appendage: - Focal reactive fibrosis and organizing hemorrhage with acute and chronic inflammation and focal hemosiderin laden macrophages. . B. Pigtail catheter tissue removal: - Organizing thrombus with focal acute inflammation and focal clusters of hemosiderin laden macrophages. (JPM:pit 06/15/2019) QTP 06/15/2019 1306 Local . 02 Electronically signed: . Cesar Ambrose MD, Pathologist NPI- [id number] . 01 Gross description: . A. Received in formalin labeled "Elizabeth Hernandezo, epiploic appendage" are two irregular fragments of [place] fibroadipose tissue measuring 3.1 x 2.0 x 1.1 cm and 4.5 x 3.7 x 1.7 cm. The external surfaces display diffuse areas of parks-white purulent exudate. Upon sectioning, no masses or nodules are grossly identified. Focal hemorrhagic areas are present. Shoulder Puncher sections are submitted in cassette A1. . B. Received in formalin labeled "David, Jordan, pigtail clot" are two cylindrical parks-white rubbery tissue fragments measuring 5.8 x 0.5 cm and 5.2 x 0.5 cm. The first portion is submitted without sectioning in B1. The second portion is serially sectioned and submitted in B2. ([facility] [place]; 06/14/2019) SYC/SYC 06/14/2019 1811 Local . 02 Pathologist provided ICD-10: K52.9 02 CPT . 246981, 526500 Specimen Comment: A courtesy copy of this report has been sent to [phone], [phone] Specimen Comment: [id number] Specimen Comment: Report sent to / DR DU Performed at: 01 [facility] [address] [id number] MD Pepito Santizo MD Phone: [phone] Performed at: 02 [facility] [address] [place], [place] [id number] MD Cesar Ambrose MD Phone: [phone]
== END 2019-06-14 18:05 | disposition home or self-care (01) ==
LOC: ER 14:02 → 4 NORTH 15:21
PROVIDERS: ADMIT Surgery; ATTEND Surgery
DX: T82.41XA Breakdown (mechanical) of vascular dialysis catheter, initial encounter (principal); I12.9 Hypertensive chronic kidney disease with stage 1 through stage 4 chronic kidney disease, or unspecified chronic kidney disease; N18.9 Chronic kidney disease, unspecified; I25.10 Atherosclerotic heart disease of native coronary artery without angina pectoris; G47.30 Sleep apnea, unspecified; Z95.1 Presence of aortocoronary bypass graft; Z87.891 Personal history of nicotine dependence
CPT/HCPCS: 36415; 36578; 80048; 85025; 88305; 99284; A7015; G0378; J0330; J0690; J0696; J1100; J2001; J2405; J2710; J3490; J7030; G0379; J3010